=== PATIENT | male | born 1980 | race Caucasian/White ===

== ENCOUNTER 2017-12-24 14:49 | Emergency (ER) | payer OTHER, MEDICAID ==
[~2017-12-24] VITALS: Ht 177.8 cm; Wt 104.3 kg
[~2017-12-24 14:49] MED LIST: AMLODIPINE BESY10 MG; AMOXICILLIN 50500 MG PO; BENTYL20 MG PO; BLOOD PRESSURE MED; CARAFATE1 GM/10 ML; CLEOCIN HCL300 MG PO; CYCLOBENZAPRINE5 MG PO; DARVOCET-N 1001 EACH PO; DOXYCYCLINE 10100 MG PO; FLEXERIL PO; FLONASE 0.05%50 MCG NASAL; HYDROCHLOROTH12.5 M1 PO; HYDROCODON-ACE1 EAC5 PO; IBUPROFEN 800800 MG PO; KLOR-CON 10 ER10 MEQ PO; LASIX 40 MG TAB40 M2 PO; LIPITOR10 MG PO; NEXIUM40 MG PO; NORCO 10-325 T1 EACH; NORCO 10-325 T1 EACH PO; NORCO 5-325 TA1 EACH PO; OMEPRAZOLE 20 M20 M1; OXYIR5 MG PO; PENICILLIN V P500 MG PO; PENICILLIN VK250 MG PO; PERCOCET 5-3251 EACH PO; PHENERGAN 25 MG25 M1 PO; PREDNISONE 20 M20 MG PO; PROTONIX40 M2 PO; VENTOLIN HFA INH8 GM IH
[2017-12-24] MEDS ORDERED: POTASSIUM20 PO (15:10)
[2017-12-24] MEDS ORDERED: ANTACID168 MG PO (15:11)
[2017-12-24 15:39] LABS: ABSOLUTE BASOPHILS 0.1 thou/uL (0.0-0.2); ABSOLUTE EOSINOPHILS 0.4 thou/uL (0.0-0.7); ABSOLUTE LYMPHOCYTES 3.2 thou/uL (0.8-5.3); ABSOLUTE MONOCYTES 0.7 thou/uL (0.0-1.2); BASOPHILS 0.9 %; EOSINOPHILS 3.7 %; HEMATOCRIT 49.3 % (42.0-52.0); HEMOGLOBIN 16.8 gm/dL (14.0-18.0); MCH 30.6 pg (26.0-34.0); MCV 89.8 fL (80.0-100.0); MONOCYTES 6.7 %; MPV 7.6 fl. (7.2-11.1); NUCLEATED RBCS 0 /100WBC; PLATELET COUNT* 243 thou/uL (150-400); POLYS 57.7 %; RBC 5.49 mil/uL (4.50-6.00); RDW-CV 14.1 % (10.5-14.5); WBC 10.4 thou/uL (4.0-11.0)
[2017-12-24 15:46] LABS: ANION GAP 8 mmol/L (7-16); BUN 6 mg/dL (7-18); CHLORIDE 106 mmol/L (98-107); CO2 28 mmol/L (21-32); CREATININE 0.9 mg/dL (0.6-1.3); GLUCOSE 95 mg/dL (70-99); SODIUM 142 mmol/L (136-145)
[2017-12-24 15:58] LABS: ALKALINE PHOSPHATASE 75 U/L (46-116); LIPASE 144 U/L (73-393); SGOT 17 U/L (15-37); SGPT 29 U/L (30-65); TOTAL BILIRUBIN 0.4 mg/dL (<0.1-1.0); TROPONIN-I LEVEL <0.06 ng/mL (<0.06)
[2017-12-24 16:19] LABS: URINE BILIRUBIN NEGATIVE (Negative); URINE BLOOD NEGATIVE (Negative); URINE CLARITY CLEAR; URINE COLOR YELLOW; URINE GLUCOSE-RANDOM NEGATIVE (Negative); URINE KETONES NEGATIVE (Negative); URINE LEUKOCYTES-REFLEX NEGATIVE (Negative); URINE NITRITE-REFLEX NEGATIVE (Negative); URINE PROTEIN NEGATIVE (Negative); URINE UROBILINOGEN 0.2 E.U./dl (0.2-1.0)
[2017-12-24 16:28] VITALS: BP 139/100
[2017-12-24 16:30] LABS: AMP/METHAMP Negative (Negative); BARBITURATES Negative (Negative); BENZODIAZEPINES Negative (Negative); COCAINE Negative (Negative); METHADONE Negative (Negative); OPIATES POSITIVE (Negative); PCP Negative (Negative); THC Negative (Negative)
--- NOTE | 2017-12-26 12:58 | EKG ---
[place] [address] ELECTROCARDIOGRAM REPORT Name: KAROLINA EPPS Room: [facility]#: [id number] Admission: 12/24/17 Attend Phys: Discharge: 12/24/17 Date of : [birth year] Report #: [id number] THIS REPORT FOR: //name// [facility] ED Test Date: 2017-12-24 Test Time: 14:56:58 Pat Name: KAROLINA EPPS Department: Room: Gender: M Jewel Cupping Machine Operator: CATHIE : 1980 Requested By: Fabiana Blunt Order Number: [id number] MD: Eugene De León Measurements Intervals [place] Rate: 90 P: 24 ID: 125 QRS: 13 QRSD: 85 T: 15 QT: 356 QTc: 436 Interpretive Statements Sinus rhythm Borderline T wave abnormalities Compared to ECG 11/21/2016 20:36:32 T-wave abnormality now present Electronically Signed On 12-26-2017 12:58:21 CDT by Eugene De León [email or web address] <ELECTRONICALLY SIGNED> By: Romeo De León MD, [facility] 12/26/17 1258 1456 1456 Romeo De León MD, [facility] /EPI
== END 2017-12-24 16:29 | disposition home or self-care (01) ==
LOC: M.ERS 14:49
PROVIDERS: Physician Assistant
DX: M25.512 Pain in left shoulder (principal); R53.83 Other fatigue; I10 Essential (primary) hypertension; F17.210 Nicotine dependence, cigarettes, uncomplicated

== ENCOUNTER 2018-01-17 20:07 | Emergency (ER) | payer OTHER, MEDICAID ==
[~2018-01-17] VITALS: Ht 180.3 cm; Wt 105.7 kg
[~2018-01-17 20:07] MED LIST changes: +ANTACID168 MG PO; +POTASSIUM20 PO
[2018-01-17 21:12] LABS: URINE BILIRUBIN NEGATIVE (Negative); URINE BLOOD NEGATIVE (Negative); URINE CLARITY CLEAR; URINE COLOR YELLOW; URINE GLUCOSE-RANDOM NEGATIVE (Negative); URINE KETONES NEGATIVE (Negative); URINE LEUKOCYTES-REFLEX NEGATIVE (Negative); URINE NITRITE-REFLEX NEGATIVE (Negative); URINE PROTEIN NEGATIVE (Negative); URINE SPECIFIC GRAVITY <= 1.005 (1.005-1.030); URINE UROBILINOGEN 0.2 E.U./dl (0.2-1.0)
[2018-01-17 21:15] LABS: ABSOLUTE BASOPHILS 0.1 thou/uL (0.0-0.2); ABSOLUTE EOSINOPHILS 0.4 thou/uL (0.0-0.7); ABSOLUTE LYMPHOCYTES 3.5 thou/uL (0.8-5.3); ABSOLUTE MONOCYTES 0.7 thou/uL (0.0-1.2); ABSOLUTE NEUTROPHILS 6.2 thou/uL (1.6-8.1); BASOPHILS 1.2 %; EOSINOPHILS 3.6 %; HEMATOCRIT 49.6 % (42.0-52.0); LYMPHOCYTES 32.4 %; MCHC 34.3 g/dL (28.0-37.0); MCV 90.4 fL (80.0-100.0); MONOCYTES 6.6 %; MPV 7.7 fl. (7.2-11.1); NUCLEATED RBCS 0 /100WBC; PLATELET COUNT* 261 thou/uL (150-400); POLYS 56.2 %; RBC 5.49 mil/uL (4.50-6.00); WBC 10.9 thou/uL (4.0-11.0)
[2018-01-17 21:21] LABS: CALCIUM 8.9 mg/dL (8.5-10.1); POTASSIUM 3.7 mmol/L (3.5-5.1)
[2018-01-17 21:25] LABS: ALBUMIN 4.3 g/dL (3.4-5.0); TOTAL BILIRUBIN 0.3 mg/dL (<0.1-1.0); TOTAL PROTEIN 7.4 g/dL (6.4-8.2)
[2018-01-17] MEDS ORDERED: HYDROCODON-ACE1 EAC7 PO (23:56)
[2018-01-17] MEDS ORDERED: ZOFRAN4 MG PO (23:56)
[2018-01-18 00:02] VITALS: BP 178/112
== END 2018-01-18 00:04 | disposition home or self-care (01) ==
LOC: M.ERS 20:07
PROVIDERS: Emergency Medicine
DX: R10.9 Unspecified abdominal pain (principal); I10 Essential (primary) hypertension; F17.210 Nicotine dependence, cigarettes, uncomplicated

== ENCOUNTER 2018-02-28 12:49 | Emergency (ER) | payer OTHER, MEDICAID ==
[~2018-02-28] VITALS: Ht 177.8 cm; Wt 86.2 kg
[~2018-02-28 12:49] MED LIST changes: +HYDROCODON-ACE1 EAC7 PO; +ZOFRAN4 MG PO
[2018-02-28] MEDS ORDERED: PROTONIX 20 MG20 M1 PO (13:13)
[2018-02-28 13:54] LABS: ABSOLUTE BASOPHILS 0.1 thou/uL (0.0-0.2); ABSOLUTE EOSINOPHILS 0.2 thou/uL (0.0-0.7); ABSOLUTE LYMPHOCYTES 3.7 thou/uL (0.8-5.3); ABSOLUTE MONOCYTES 0.8 thou/uL (0.0-1.2); ABSOLUTE NEUTROPHILS 7.1 thou/uL (1.6-8.1); BASOPHILS 0.9 %; EOSINOPHILS 1.7 %; HEMATOCRIT 48.1 % (42.0-52.0); HEMOGLOBIN 16.2 gm/dL (14.0-18.0); LYMPHOCYTES 30.8 %; MCH 30.9 pg (26.0-34.0); MCHC 33.6 g/dL (28.0-37.0); MCV 91.8 fL (80.0-100.0); MONOCYTES 6.7 %; NUCLEATED RBCS 0 /100WBC; PLATELET COUNT* 247 thou/uL (150-400); POLYS 59.9 %; RBC 5.24 mil/uL (4.50-6.00); RDW-CV 13.3 % (10.5-14.5); WBC 11.9 thou/uL (4.0-11.0)
[2018-02-28 14:02] LABS: CREATININE 0.8 mg/dL (0.6-1.3); POTASSIUM 3.7 mmol/L (3.5-5.1)
[2018-02-28 14:07] LABS: ALBUMIN 4.1 g/dL (3.4-5.0); TOTAL BILIRUBIN 0.3 mg/dL (<0.1-1.0)
[2018-02-28] MEDS ORDERED: ACETAMINOPHEN-1 EAC1 PO (14:14)
[2018-02-28] MEDS ORDERED: CLEOCIN HCL150 MG PO (14:14)
[2018-02-28] MEDS ORDERED: PREDNISONE 20 M20 MG PO (14:16)
[2018-02-28 14:23] VITALS: BP 183/107
== END 2018-02-28 14:23 | disposition home or self-care (01) ==
LOC: M.ERS 12:49
PROVIDERS: Physician Assistant
DX: J02.9 Acute pharyngitis, unspecified (principal); I10 Essential (primary) hypertension; K21.9 Gastro-esophageal reflux disease without esophagitis; F17.210 Nicotine dependence, cigarettes, uncomplicated

== ENCOUNTER 2018-05-31 12:45 | Emergency (ER) | payer OTHER, MEDICAID ==
[~2018-05-31] VITALS: Ht 177.8 cm; Wt 103.0 kg
[~2018-05-31 12:45] MED LIST changes: +ACETAMINOPHEN-1 EAC1 PO; +CLEOCIN HCL150 MG PO; +PROTONIX 20 MG20 M1 PO
[2018-05-31] MEDS ORDERED: CLONIDINE0.1 PO (12:50)
[2018-05-31 13:11] LABS: ABSOLUTE BASOPHILS 0.1 thou/uL (0.0-0.2); ABSOLUTE EOSINOPHILS 0.4 thou/uL (0.0-0.7); ABSOLUTE LYMPHOCYTES 3.1 thou/uL (0.8-5.3); ABSOLUTE MONOCYTES 0.5 thou/uL (0.0-1.2); ABSOLUTE NEUTROPHILS 4.8 thou/uL (1.6-8.1); BASOPHILS 1.3 %; EOSINOPHILS 4.3 %; HEMATOCRIT 46.7 % (42.0-52.0); HEMOGLOBIN 15.7 gm/dL (14.0-18.0); LYMPHOCYTES 34.7 %; MCH 30.4 pg (26.0-34.0); MCHC 33.7 g/dL (28.0-37.0); MCV 90.1 fL (80.0-100.0); MONOCYTES 5.6 %; MPV 7.5 fl. (7.2-11.1); NUCLEATED RBCS 0 /100WBC; PLATELET COUNT* 241 thou/uL (150-400); POLYS 54.1 %; RBC 5.18 mil/uL (4.50-6.00); RDW-CV 13.1 % (10.5-14.5)
[2018-05-31 13:17] LABS: ANION GAP 10 mmol/L (7-16); BUN 4 mg/dL (7-18); CALCIUM 8.4 mg/dL (8.5-10.1); CHLORIDE 104 mmol/L (98-107); CO2 27 mmol/L (21-32); GLUCOSE 117 mg/dL (70-99); POTASSIUM 3.3 mmol/L (3.5-5.1); SODIUM 141 mmol/L (136-145)
[2018-05-31 13:27] LABS: ALBUMIN 3.7 g/dL (3.4-5.0); ALKALINE PHOSPHATASE 68 U/L (46-116); LIPASE 144 U/L (73-393); NT-PRO BRAIN NAT PEPTIDE 31 pg/mL (<300); SGOT 12 U/L (15-37); SGPT 22 U/L (30-65); TOTAL BILIRUBIN 0.5 mg/dL (<0.1-1.0); TOTAL PROTEIN 6.6 g/dL (6.4-8.2); TROPONIN-I LEVEL <0.06 ng/mL (<0.06)
[2018-05-31] MEDS ORDERED: IBU800 MG PO (13:45)
[2018-05-31 13:55] VITALS: BP 163/106
--- NOTE | 2018-05-31 14:41 | EKG ---
[place] [address] ELECTROCARDIOGRAM REPORT Name: KAROLINA EPPS Room: [facility]#: [id number] Admission: 05/31/18 Attend Phys: Discharge: 05/31/18 Date of : [birth year] Report #: [id number] THIS REPORT FOR: //name// [facility] ED Test Date: 2018-05-31 Test Time: 12:50:20 Pat Name: KAROLINA EPPS Department: Room: Gender: M Film Archivist: : 1980 Requested By: Hemal Mcwilliams Order Number: [id number] MD: Booker Schwarz Measurements Intervals [place] Rate: 69 P: 14 CT: 133 QRS: 5 QRSD: 101 T: 10 QT: 408 QTc: 437 Interpretive Statements Sinus rhythm Abnormal R-wave progression, early transition Borderline T abnormalities, inferior leads Compared to ECG 12/24/2017 14:56:58 No significant changes Electronically Signed On 05-31-2018 14:41:03 CDT by Booker Schwarz [email or web address] <ELECTRONICALLY SIGNED> By: Booker Schwarz MD, [facility] 05/31/18 1441 1250 1250 Booker Schwarz MD, [facility] /EPI
== END 2018-05-31 13:56 | disposition home or self-care (01) ==
LOC: M.ERS 12:45
PROVIDERS: Emergency Medicine
DX: R07.89 Other chest pain (principal); K21.9 Gastro-esophageal reflux disease without esophagitis; I10 Essential (primary) hypertension; F17.210 Nicotine dependence, cigarettes, uncomplicated

== ENCOUNTER 2018-06-08 14:45 | Emergency (ER) | payer OTHER, MEDICAID ==
[~2018-06-08] VITALS: Ht 154.9 cm; Wt 105.0 kg
[~2018-06-08 14:45] MED LIST changes: +CLONIDINE0.1 PO; +IBU800 MG PO
[2018-06-08] MEDS ORDERED: PROAIR HFA8.5 GM INH (14:54)
[2018-06-08] MEDS ORDERED: IBUPROFEN 800800 M1 PO (14:54)
[2018-06-08 15:18] LABS: URINE BILIRUBIN NEGATIVE (Negative); URINE BLOOD NEGATIVE (Negative); URINE CLARITY CLEAR; URINE COLOR YELLOW; URINE GLUCOSE-RANDOM NEGATIVE (Negative); URINE KETONES NEGATIVE (Negative); URINE LEUKOCYTES-REFLEX NEGATIVE (Negative); URINE NITRITE-REFLEX NEGATIVE (Negative); URINE PROTEIN NEGATIVE (Negative); URINE SPECIFIC GRAVITY <= 1.005 (1.005-1.030); URINE UROBILINOGEN 0.2 E.U./dl (0.2-1.0)
[2018-06-08 15:20] LABS: ABSOLUTE BASOPHILS 0.1 thou/uL (0.0-0.2); ABSOLUTE EOSINOPHILS 0.4 thou/uL (0.0-0.7); ABSOLUTE MONOCYTES 0.7 thou/uL (0.0-1.2); ABSOLUTE NEUTROPHILS 6.1 thou/uL (1.6-8.1); BASOPHILS 1.3 %; EOSINOPHILS 3.7 %; HEMATOCRIT 48.4 % (42.0-52.0); HEMOGLOBIN 16.2 gm/dL (14.0-18.0); LYMPHOCYTES 35.5 %; MCH 30.5 pg (26.0-34.0); MCHC 33.5 g/dL (28.0-37.0); MCV 91.2 fL (80.0-100.0); MONOCYTES 5.8 %; MPV 7.6 fl. (7.2-11.1); NUCLEATED RBCS 0 /100WBC; PLATELET COUNT* 286 thou/uL (150-400); POLYS 53.7 %; RBC 5.31 mil/uL (4.50-6.00); RDW-CV 13.6 % (10.5-14.5); WBC 11.3 thou/uL (4.0-11.0)
[2018-06-08 15:25] LABS: AMP/METHAMP Negative (Negative); BARBITURATES Negative (Negative); BENZODIAZEPINES Negative (Negative); COCAINE Negative (Negative); METHADONE Negative (Negative); OPIATES Negative (Negative); PCP Negative (Negative); THC Negative (Negative)
[2018-06-08 15:26] LABS: CALCIUM 8.7 mg/dL (8.5-10.1); POTASSIUM 3.3 mmol/L (3.5-5.1)
[2018-06-08 15:30] LABS: TOTAL BILIRUBIN 0.3 mg/dL (<0.1-1.0); TOTAL PROTEIN 7.1 g/dL (6.4-8.2)
[2018-06-08 16:23] VITALS: BP 159/94
== END 2018-06-08 16:25 | disposition home or self-care (01) ==
LOC: M.ERS 14:45
PROVIDERS: Nurse Practitioner Family
DX: R10.11 Right upper quadrant pain (principal); M79.604 Pain in right leg; M79.605 Pain in left leg; I10 Essential (primary) hypertension; K21.9 Gastro-esophageal reflux disease without esophagitis; F17.210 Nicotine dependence, cigarettes, uncomplicated

== ENCOUNTER 2018-09-14 21:54 | Emergency (ER) | payer OTHER, MEDICAID ==
[~2018-09-14] VITALS: Ht 175.3 cm; Wt 93.0 kg
[~2018-09-14 21:54] MED LIST changes: +IBUPROFEN 800800 M1 PO; +PROAIR HFA8.5 GM INH
[2018-09-14] MEDS ORDERED: ASPIR-TRIN325 MG PO (22:14)
[2018-09-14 22:32] LABS: ABSOLUTE BASOPHILS 0.2 thou/uL (0.0-0.2); ABSOLUTE EOSINOPHILS 0.3 thou/uL (0.0-0.7); ABSOLUTE LYMPHOCYTES 3.3 thou/uL (0.8-5.3); ABSOLUTE MONOCYTES 0.6 thou/uL (0.0-1.2); ABSOLUTE NEUTROPHILS 6.2 thou/uL (1.6-8.1); BASOPHILS 1.4 %; HEMATOCRIT 50.4 % (42.0-52.0); HEMOGLOBIN 17.1 gm/dL (14.0-18.0); LYMPHOCYTES 31.5 %; MCH 30.8 pg (26.0-34.0); MCV 90.7 fL (80.0-100.0); MONOCYTES 5.7 %; MPV 7.6 fl. (7.2-11.1); NUCLEATED RBCS 0 /100WBC; PLATELET COUNT* 241 thou/uL (150-400); POLYS 58.4 %; RBC 5.55 mil/uL (4.50-6.00); RDW-CV 13.2 % (10.5-14.5); WBC 10.6 thou/uL (4.0-11.0)
[2018-09-14 22:41] LABS: ANION GAP 8 mmol/L (7-16); BUN 7 mg/dL (7-18); CHLORIDE 106 mmol/L (98-107); CO2 28 mmol/L (21-32); GLUCOSE 86 mg/dL (70-99); POTASSIUM 3.6 mmol/L (3.5-5.1); SODIUM 142 mmol/L (136-145)
[2018-09-14 22:51] LABS: ALKALINE PHOSPHATASE 78 U/L (46-116); LIPASE 134 U/L (73-393); NT-PRO BRAIN NAT PEPTIDE 25 pg/mL (<300); SGOT 11 U/L (15-37); SGPT 30 U/L (30-65); TOTAL BILIRUBIN 0.4 mg/dL (<0.1-1.0); TOTAL PROTEIN 7.1 g/dL (6.4-8.2); TROPONIN-I LEVEL <0.06 ng/mL (<0.06)
[2018-09-14 23:14] LABS: URINE BILIRUBIN NEGATIVE (Negative); URINE BLOOD NEGATIVE (Negative); URINE CLARITY CLEAR; URINE COLOR YELLOW; URINE GLUCOSE-RANDOM NEGATIVE (Negative); URINE KETONES NEGATIVE (Negative); URINE LEUKOCYTES-REFLEX NEGATIVE (Negative); URINE NITRITE-REFLEX NEGATIVE (Negative); URINE PROTEIN NEGATIVE (Negative); URINE SPECIFIC GRAVITY <= 1.005 (1.005-1.030); URINE UROBILINOGEN 0.2 E.U./dl (0.2-1.0)
[2018-09-14 23:21] LABS: AMP/METHAMP Negative (Negative); BARBITURATES Negative (Negative); BENZODIAZEPINES Negative (Negative); COCAINE Negative (Negative); METHADONE Negative (Negative); OPIATES Negative (Negative); PCP Negative (Negative); THC Negative (Negative)
[2018-09-14] MEDS ORDERED: NORVASC5 MG PO (23:28)
[2018-09-14 23:37] VITALS: BP 143/92
--- NOTE | 2018-09-15 10:59 | EKG ---
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
== END 2018-09-14 23:37 | disposition home or self-care (01) ==
LOC: M.ERS 21:54
PROVIDERS: Emergency Medicine
DX: I10 Essential (primary) hypertension (principal); K21.9 Gastro-esophageal reflux disease without esophagitis; R06.02 Shortness of breath; R42 Dizziness and giddiness

== ENCOUNTER 2018-10-26 09:14 | Emergency (ER) | payer OTHER, MEDICAID ==
[~2018-10-26] VITALS: Ht 175.3 cm; Wt 96.6 kg
[~2018-10-26 09:14] MED LIST changes: +ASPIR-TRIN325 MG PO; +NORVASC5 MG PO
[2018-10-26 09:59] LABS: URINE BILIRUBIN NEGATIVE (Negative); URINE BLOOD NEGATIVE (Negative); URINE CLARITY CLEAR; URINE COLOR YELLOW; URINE GLUCOSE-RANDOM NEGATIVE (Negative); URINE KETONES NEGATIVE (Negative); URINE LEUKOCYTES-REFLEX NEGATIVE (Negative); URINE NITRITE-REFLEX NEGATIVE (Negative); URINE PROTEIN NEGATIVE (Negative); URINE SPECIFIC GRAVITY 1.025 (1.005-1.030); URINE UROBILINOGEN 0.2 E.U./dl (0.2-1.0)
[2018-10-26 10:26] LABS: ABSOLUTE BASOPHILS 0.1 thou/uL (0.0-0.2); ABSOLUTE EOSINOPHILS 0.4 thou/uL (0.0-0.7); ABSOLUTE LYMPHOCYTES 3.2 thou/uL (0.8-5.3); ABSOLUTE MONOCYTES 0.7 thou/uL (0.0-1.2); ABSOLUTE NEUTROPHILS 4.7 thou/uL (1.6-8.1); BASOPHILS 1.3 %; HEMATOCRIT 50.5 % (42.0-52.0); HEMOGLOBIN 17.3 gm/dL (14.0-18.0); LYMPHOCYTES 35.6 %; MCH 31.3 pg (26.0-34.0); MCHC 34.2 g/dL (28.0-37.0); MCV 91.6 fL (80.0-100.0); MONOCYTES 7.4 %; MPV 7.6 fl. (7.2-11.1); NUCLEATED RBCS 0 /100WBC; PLATELET COUNT* 237 thou/uL (150-400); POLYS 51.7 %; RBC 5.51 mil/uL (4.50-6.00); RDW-CV 13.4 % (10.5-14.5)
[2018-10-26 10:37] LABS: ALBUMIN 3.9 g/dL (3.4-5.0); POTASSIUM 3.3 mmol/L (3.5-5.1); TOTAL BILIRUBIN 0.4 mg/dL (<0.1-1.0); TOTAL PROTEIN 6.9 g/dL (6.4-8.2)
[2018-10-26 10:47] VITALS: BP 147/99
== END 2018-10-26 10:48 | disposition home or self-care (01) ==
LOC: M.ERS 09:14
PROVIDERS: Family Medicine
DX: M54.5 Low back pain (principal); I10 Essential (primary) hypertension; K21.9 Gastro-esophageal reflux disease without esophagitis; F17.210 Nicotine dependence, cigarettes, uncomplicated

== ENCOUNTER 2019-01-07 16:48 | Emergency (ER) | payer OTHER ==
[~2019-01-07] VITALS: Ht 175.3 cm; Wt 88.5 kg
[2019-01-07 17:49] LABS: ABSOLUTE BASOPHILS 0.1 thou/uL (0.0-0.2); ABSOLUTE EOSINOPHILS 0.4 thou/uL (0.0-0.7); ABSOLUTE MONOCYTES 0.4 thou/uL (0.0-1.2); ABSOLUTE NEUTROPHILS 4.1 thou/uL (1.6-8.1); BASOPHILS 1.1 %; HEMATOCRIT 51.8 % (42.0-52.0); HEMOGLOBIN 17.7 gm/dL (14.0-18.0); LYMPHOCYTES 37.3 %; MCHC 34.2 g/dL (28.0-37.0); MCV 90.8 fL (80.0-100.0); MONOCYTES 5.5 %; MPV 8.1 fl. (7.2-11.1); NUCLEATED RBCS 0 /100WBC; PLATELET COUNT* 235 thou/uL (150-400); POLYS 51.1 %; RBC 5.71 mil/uL (4.50-6.00); RDW-CV 13.1 % (10.5-14.5); WBC 8.1 thou/uL (4.0-11.0)
[2019-01-07 18:00] LABS: APTT 32.8 Seconds (25.0-31.3); PROTIME 10.5 Seconds (9.20-11.50)
[2019-01-07 18:12] LABS: ANION GAP 8 mmol/L (7-16); BUN 8 mg/dL (7-18); CALCIUM 9.1 mg/dL (8.5-10.1); CHLORIDE 107 mmol/L (98-107); CO2 28 mmol/L (21-32); GLUCOSE 89 mg/dL (70-99); POTASSIUM 3.9 mmol/L (3.5-5.1); SODIUM 143 mmol/L (136-145); TROPONIN-I LEVEL <0.06 ng/mL (<0.06)
[2019-01-07 18:16] LABS: ALKALINE PHOSPHATASE 80 U/L (46-116); CK-MB MASS < 0.5 ng/mL (<0.5-3.6); LIPASE 110 U/L (73-393); MAGNESIUM 1.9 mg/dL (1.8-2.4); NT-PRO BRAIN NAT PEPTIDE 17 pg/mL (<300); SGOT 16 U/L (15-37); SGPT 22 U/L (30-65); TOTAL BILIRUBIN 0.4 mg/dL (<0.1-1.0); TOTAL PROTEIN 7.1 g/dL (6.4-8.2)
[2019-01-07 18:30] VITALS: BP 163/103
--- NOTE | 2019-01-08 15:12 | EKG ---
[place] [address] ELECTROCARDIOGRAM REPORT Name: KAROLINA EPPS [id number] Admission: 01/07/19 Attend Phys: Discharge: 01/07/19 Date of : [birth year] Report #: [id number] THIS REPORT FOR: //name// [facility] ED Test Date: 2019-01-07 Test Time: 16:55:20 Pat Name: KAROLINA EPPS Department: Room: Gender: M Fur Liner: : 1980 Requested By: Cooper Johnston Order Number: [id number] MD: Moncho Mcdaniels Measurements Intervals [place] Rate: 82 P: 29 CT: 127 QRS: 18 QRSD: 101 T: 30 QT: 353 QTc: 413 Interpretive Statements Sinus rhythm Baseline wander in lead(s) V2 Compared to ECG 09/14/2018 22:18:56 No significant changes Electronically Signed On 01-08-2019 15:12:17 CDT by Moncho Mcdaniels [email or web address] <ELECTRONICALLY SIGNED> By: Moncho Mcdaniels MD, [facility] 01/08/19 1512 D: [id number] Moncho Mcdaniels MD, [facility] /EPI
== END 2019-01-07 18:31 | disposition home or self-care (01) ==
LOC: M.ERS 16:48
PROVIDERS: Family Medicine
DX: R07.89 Other chest pain (principal); I10 Essential (primary) hypertension; K21.9 Gastro-esophageal reflux disease without esophagitis; F17.210 Nicotine dependence, cigarettes, uncomplicated

== ENCOUNTER 2019-02-17 13:26 | Emergency (ER) | payer OTHER ==
[~2019-02-17] VITALS: Ht 182.9 cm; Wt 81.7 kg
[2019-02-17] MEDS ORDERED: NEXIUM40 MG PO (14:20)
[2019-02-17 14:59] LABS: URINE BILIRUBIN NEGATIVE (Negative); URINE BLOOD NEGATIVE (Negative); URINE CLARITY CLEAR; URINE COLOR YELLOW; URINE GLUCOSE-RANDOM NEGATIVE (Negative); URINE KETONES NEGATIVE (Negative); URINE LEUKOCYTES-REFLEX NEGATIVE (Negative); URINE NITRITE-REFLEX NEGATIVE (Negative); URINE PROTEIN NEGATIVE (Negative); URINE SPECIFIC GRAVITY <= 1.005 (1.005-1.030); URINE UROBILINOGEN 0.2 E.U./dl (0.2-1.0)
[2019-02-17 15:06] LABS: ABSOLUTE EOSINOPHILS 0.3 thou/uL (0.0-0.7); ABSOLUTE LYMPHOCYTES 2.5 thou/uL (0.8-5.3); ABSOLUTE MONOCYTES 0.4 thou/uL (0.0-1.2); ABSOLUTE NEUTROPHILS 5.9 thou/uL (1.6-8.1); BASOPHILS 0.3 %; EOSINOPHILS 3.3 %; HEMATOCRIT 50.2 % (42.0-52.0); HEMOGLOBIN 17.2 gm/dL (14.0-18.0); LYMPHOCYTES 27.2 %; MCH 31.1 pg (26.0-34.0); MCHC 34.2 g/dL (28.0-37.0); MCV 90.9 fL (80.0-100.0); MONOCYTES 4.8 %; MPV 8.1 fl. (7.2-11.1); NUCLEATED RBCS 0 /100WBC; PLATELET COUNT* 222 thou/uL (150-400); POLYS 64.4 %; RBC 5.52 mil/uL (4.50-6.00); RDW-CV 13.4 % (10.5-14.5); WBC 9.2 thou/uL (4.0-11.0)
[2019-02-17 15:28] LABS: ALBUMIN 4.1 g/dL (3.4-5.0); ALKALINE PHOSPHATASE 69 U/L (46-116); ANION GAP 8 mmol/L (7-16); BUN 7 mg/dL (7-18); CALCIUM 9.3 mg/dL (8.5-10.1); CHLORIDE 106 mmol/L (98-107); CO2 28 mmol/L (21-32); CREATININE 0.9 mg/dL (0.6-1.3); GLUCOSE 92 mg/dL (70-99); POTASSIUM 4.1 mmol/L (3.5-5.1); SGOT 16 U/L (15-37); SGPT 26 U/L (30-65); SODIUM 142 mmol/L (136-145); TOTAL BILIRUBIN 0.6 mg/dL (<0.1-1.0); TOTAL PROTEIN 7.2 g/dL (6.4-8.2); TROPONIN-I LEVEL <0.06 ng/mL (<0.06)
--- NOTE | 2019-02-17 16:37 | EKG ---
[place] [address] ELECTROCARDIOGRAM REPORT Name: KAROLINA EPPS Room: [facility]#: [id number] Admission: 02/17/19 Attend Phys: Discharge: Date of : [birth year] Report #: [id number] THIS REPORT FOR: //name// [place] ED Test Date: 2019-02-17 Test Time: 14:37:11 Pat Name: KAROLINA MICH Department: Room: Gender: Practice Assistant: Gretchen TOUSSAINT : 1980 Requested By: Yanique Salinas Order Number: [id number] MD: Booker Schwarz Measurements Intervals [place] Rate: 72 P: 34 OR: 124 QRS: 27 QRSD: 98 T: 40 QT: 390 QTc: 427 Interpretive Statements Sinus rhythm Compared to ECG 01/07/2019 16:55:20 No significant changes Electronically Signed On 02-17-2019 16:37:49 CDT by Booker Schwarz [email or web address] <ELECTRONICALLY SIGNED> By: Booker Schwarz MD, [facility] 02/17/19 1637 1437 1437 Booker Schwarz MD, [facility] /EPI
[2019-02-17] MEDS ORDERED: MEDROLDOSEPACK PO (16:39)
[2019-02-17] MEDS ORDERED: NORCO 5-325 TA1 EACH PO (16:39)
[2019-02-17] MEDS ORDERED: FLEXERIL PO (16:39)
[2019-02-17 16:59] VITALS: BP 157/107
== END 2019-02-17 17:01 | disposition home or self-care (01) ==
LOC: M.ERS 13:26
PROVIDERS: Nurse Practitioner Family
DX: M46.1 Sacroiliitis, not elsewhere classified (principal); R10.32 Left lower quadrant pain; N50.812 Left testicular pain; F17.210 Nicotine dependence, cigarettes, uncomplicated; K21.9 Gastro-esophageal reflux disease without esophagitis; I10 Essential (primary) hypertension

== ENCOUNTER 2019-03-16 17:22 | Emergency (ER) | payer OTHER, MEDICAID ==
[~2019-03-16] VITALS: Ht 175.3 cm; Wt 83.0 kg
[~2019-03-16 17:22] MED LIST changes: +MEDROLDOSEPACK PO
[2019-03-16] MEDS ORDERED: PROTONIX40 M1 PO (17:37)
[2019-03-16] MEDS ORDERED: AMOXICILLIN 50500 MG PO (17:58)
[2019-03-16] MEDS ORDERED: NAPROSYN500 MG PO (17:58)
[2019-03-16 18:07] VITALS: BP 173/103
== END 2019-03-16 18:08 | disposition home or self-care (01) ==
LOC: M.ERS 17:22
DX: H66.91 Otitis media, unspecified, right ear (principal); J06.9 Acute upper respiratory infection, unspecified; K21.9 Gastro-esophageal reflux disease without esophagitis; I10 Essential (primary) hypertension; F17.210 Nicotine dependence, cigarettes, uncomplicated

== ENCOUNTER 2019-04-15 17:32 | Emergency (ER) | payer OTHER, MEDICAID ==
[~2019-04-15] VITALS: Ht 177.8 cm; Wt 83.5 kg
[~2019-04-15 17:32] MED LIST changes: +NAPROSYN500 MG PO; +PREDNISONE 20 M20 M1 PO; +PROTONIX40 M1 PO; +ZPAK PO
[2019-04-15 18:14] LABS: ABSOLUTE BASOPHILS 0.1 thou/uL (0.0-0.2); ABSOLUTE EOSINOPHILS 0.1 thou/uL (0.0-0.7); ABSOLUTE LYMPHOCYTES 3.5 thou/uL (0.8-5.3); ABSOLUTE MONOCYTES 0.3 thou/uL (0.0-1.2); ABSOLUTE NEUTROPHILS 7.2 thou/uL (1.6-8.1); BASOPHILS 0.6 %; EOSINOPHILS 0.5 %; HEMATOCRIT 45.3 % (42.0-52.0); HEMOGLOBIN 15.3 gm/dL (14.0-18.0); LYMPHOCYTES 31.6 %; MCH 30.6 pg (26.0-34.0); MCHC 33.7 g/dL (28.0-37.0); MCV 90.8 fL (80.0-100.0); MONOCYTES 3.1 %; MPV 7.9 fl. (7.2-11.1); NUCLEATED RBCS 0 /100WBC; PLATELET COUNT* 236 thou/uL (150-400); POLYS 64.2 %; RBC 4.99 mil/uL (4.50-6.00); RDW-CV 13.8 % (10.5-14.5); WBC 11.2 thou/uL (4.0-11.0)
[2019-04-15 18:17] LABS: URINE BILIRUBIN NEGATIVE (Negative); URINE BLOOD NEGATIVE (Negative); URINE CLARITY CLEAR; URINE COLOR STRAW; URINE GLUCOSE-RANDOM NEGATIVE (Negative); URINE KETONES NEGATIVE (Negative); URINE LEUKOCYTES NEGATIVE (Negative); URINE NITRITE NEGATIVE (Negative); URINE PROTEIN NEGATIVE (Negative); URINE SPECIFIC GRAVITY <= 1.005 (1.005-1.030); URINE UROBILINOGEN 0.2 E.U./dl (0.2-1.0)
[2019-04-15 18:21] LABS: CALCIUM 9.3 mg/dL (8.5-10.1); CREATININE 1.1 mg/dL (0.6-1.3); POTASSIUM 3.2 mmol/L (3.5-5.1)
[2019-04-15 18:25] LABS: TOTAL BILIRUBIN 0.6 mg/dL (<0.1-1.0); TOTAL PROTEIN 6.5 g/dL (6.4-8.2)
[2019-04-15] MEDS ORDERED: PHENERGAN 25 MG25 M1 PO (20:05)
[2019-04-15] MEDS ORDERED: BENTYL 20 MG TA20 M1 PO (20:05)
[2019-04-15 20:21] VITALS: BP 146/87
== END 2019-04-15 20:22 | disposition home or self-care (01) ==
LOC: M.ERS 17:32
PROVIDERS: Physician Assistant
DX: R10.84 Generalized abdominal pain (principal); R42 Dizziness and giddiness; I10 Essential (primary) hypertension; K21.9 Gastro-esophageal reflux disease without esophagitis; K76.0 Fatty (change of) liver, not elsewhere classified; F17.210 Nicotine dependence, cigarettes, uncomplicated

== ENCOUNTER 2019-05-15 14:48 | Emergency (ER) | payer OTHER, MEDICAID ==
[~2019-05-15] VITALS: Ht 167.6 cm; Wt 81.7 kg
[~2019-05-15 14:48] MED LIST changes: +BENTYL 20 MG TA20 M1 PO
[2019-05-15] MEDS ORDERED: LISINOPRIL10 MG PO (14:57)
[2019-05-15 15:24] LABS: ABSOLUTE EOSINOPHILS 0.3 thou/uL (0.0-0.7); ABSOLUTE LYMPHOCYTES 4.1 thou/uL (0.8-5.3); ABSOLUTE MONOCYTES 0.5 thou/uL (0.0-1.2); ABSOLUTE NEUTROPHILS 5.6 thou/uL (1.6-8.1); BASOPHILS 0.1 %; EOSINOPHILS 3.1 %; HEMOGLOBIN 16.6 gm/dL (14.0-18.0); LYMPHOCYTES 38.9 %; MCH 31.3 pg (26.0-34.0); MCHC 34.6 g/dL (28.0-37.0); MCV 90.5 fL (80.0-100.0); MONOCYTES 4.6 %; MPV 7.8 fl. (7.2-11.1); NUCLEATED RBCS 0 /100WBC; PLATELET COUNT* 234 thou/uL (150-400); POLYS 53.3 %; RBC 5.31 mil/uL (4.50-6.00); RDW-CV 14.1 % (10.5-14.5); WBC 10.5 thou/uL (4.0-11.0)
[2019-05-15 15:30] LABS: ANION GAP 10 mmol/L (7-16); BUN 7 mg/dL (7-18); CALCIUM 9.3 mg/dL (8.5-10.1); CHLORIDE 103 mmol/L (98-107); CO2 26 mmol/L (21-32); GLUCOSE 95 mg/dL (70-99); POTASSIUM 3.8 mmol/L (3.5-5.1); SODIUM 139 mmol/L (136-145)
[2019-05-15 15:40] LABS: ALBUMIN 4.3 g/dL (3.4-5.0); ALKALINE PHOSPHATASE 81 U/L (46-116); LIPASE 142 U/L (73-393); MAGNESIUM 1.7 mg/dL (1.8-2.4); NT-PRO BRAIN NAT PEPTIDE 34 pg/mL (<300); SGOT 14 U/L (15-37); SGPT 28 U/L (30-65); TOTAL BILIRUBIN 0.4 mg/dL (<0.1-1.0); TOTAL PROTEIN 7.3 g/dL (6.4-8.2); TROPONIN-I LEVEL <0.06 ng/mL (<0.06)
[2019-05-15] MEDS ORDERED: ZOFRAN ODT4 MG DISSOLVE (17:45)
[2019-05-15] MEDS ORDERED: NORCO 5-325 TA1 EAC1 PO (17:45)
[2019-05-15] MEDS ORDERED: FLEXERIL PO (17:45)
[2019-05-15 18:10] VITALS: BP 124/83
--- NOTE | 2019-05-16 10:37 | EKG ---
[place] [address] ELECTROCARDIOGRAM REPORT Name: KAROLINA EPPS Room: [facility]#: [id number] Admission: 05/15/19 Attend Phys: Discharge: 05/15/19 Date of : [birth year] Report #: [id number] THIS REPORT FOR: //name// [facility] ED Test Date: 2019-05-15 Test Time: 14:56:06 Pat Name: KAROLINA EPPS Department: Room: Gender: M Air Hole Driller: OLYA : 1980 Requested By: Luis Dawson Order Number: [id number] MD: Dandy Wise Measurements Intervals [place] Rate: 100 P: 67 SC: 118 QRS: 45 QRSD: 89 T: 38 QT: 357 QTc: 461 Interpretive Statements Sinus tachycardia Compared to ECG 02/17/2019 14:37:11 Sinus rhythm no longer present Electronically Signed On 05-16-2019 10:37:26 CDT by Dandy Wise [email or web address] <ELECTRONICALLY SIGNED> By: Dandy Wise MD, [facility] 05/16/19 1037 1456 1456 Dandy Wise MD, [facility] /EPI
== END 2019-05-15 18:10 | disposition home or self-care (01) ==
LOC: M.ERS 14:48
PROVIDERS: Emergency Medicine Emergency Medical Services
DX: R07.89 Other chest pain (principal); R42 Dizziness and giddiness; R10.11 Right upper quadrant pain; R25.2 Cramp and spasm; R06.02 Shortness of breath; K59.00 Constipation, unspecified; R53.1 Weakness; F17.210 Nicotine dependence, cigarettes, uncomplicated; I10 Essential (primary) hypertension; K21.9 Gastro-esophageal reflux disease without esophagitis

== ENCOUNTER 2019-06-12 12:19 | Emergency (ER) | payer OTHER, MEDICAID ==
[~2019-06-12] VITALS: Ht 175.3 cm; Wt 83.0 kg
[~2019-06-12 12:19] MED LIST changes: +LISINOPRIL10 MG PO; +NORCO 5-325 TA1 EAC1 PO; +ZOFRAN ODT4 MG DISSOLVE
[2019-06-12] MEDS ORDERED: CARVEDILOL6.25 M1 PO (12:27)
[2019-06-12 13:14] LABS: ABSOLUTE EOSINOPHILS 0.4 thou/uL (0.0-0.7); ABSOLUTE LYMPHOCYTES 2.8 thou/uL (0.8-5.3)
[2019-06-12 13:17] LABS: ABSOLUTE BASOPHILS 0.1 thou/uL (0.0-0.2); ABSOLUTE MONOCYTES 0.5 thou/uL (0.0-1.2); HEMATOCRIT 46.2 % (42.0-52.0); HEMOGLOBIN 15.8 gm/dL (14.0-18.0); LYMPHOCYTES 32.2 %; MCH 31.6 pg (26.0-34.0); MCHC 34.1 g/dL (28.0-37.0); MCV 92.5 fL (80.0-100.0); MONOCYTES 5.6 %; MPV 7.9 fl. (7.2-11.1); NUCLEATED RBCS 0 /100WBC; PLATELET COUNT* 223 thou/uL (150-400); POLYS 57.2 %; RDW-CV 14.1 % (10.5-14.5); WBC 8.8 thou/uL (4.0-11.0)
[2019-06-12 13:24] LABS: INR 1.1
[2019-06-12 13:28] LABS: CALCIUM 8.8 mg/dL (8.5-10.1)
[2019-06-12 13:33] LABS: ALBUMIN 3.8 g/dL (3.4-5.0); TOTAL BILIRUBIN 0.6 mg/dL (<0.1-1.0); TOTAL PROTEIN 6.5 g/dL (6.4-8.2)
[2019-06-12 13:45] VITALS: BP 158/97
--- NOTE | 2019-06-13 16:15 | EKG ---
[place] [address] ELECTROCARDIOGRAM REPORT Name: KAROLINA EPPS Room: [facility]#: [id number] Admission: 06/12/19 Attend Phys: Discharge: 06/12/19 Date of : [birth year] Report #: [id number] THIS REPORT FOR: //name// [facility] ED Test Date: 2019-06-12 Test Time: 13:26:33 Pat Name: KAROLINA EPPS Department: Room: Gender: M Internet Sourcer: : 1980 Requested By: Cooper Johnston Order Number: [id number] MD: Damien Napoles Measurements Intervals [place] Rate: 67 P: 27 [place]: 123 QRS: 22 QRSD: 94 T: -14 QT: 390 QTc: 412 Interpretive Statements Sinus rhythm Borderline repolarization abnormality Baseline wander in lead(s) I,II,III,aVR,aVL,aVF,V1,V2,V3,V4,V5,V6 Compared to ECG 05/15/2019 14:56:06 Sinus tachycardia no longer present Electronically Signed On 06-13-2019 16:15:23 CDT by Damien Napoles [email or web address] <ELECTRONICALLY SIGNED> By: Damien Napoles MD, [facility] 06/13/19 1615 1326 1326 Damien Napoles MD, [facility] /EPI
== END 2019-06-12 13:45 | disposition home or self-care (01) ==
LOC: M.ERS 12:19
PROVIDERS: Family Medicine
DX: R53.1 Weakness (principal); R42 Dizziness and giddiness; K21.9 Gastro-esophageal reflux disease without esophagitis; I10 Essential (primary) hypertension; F17.210 Nicotine dependence, cigarettes, uncomplicated

== ENCOUNTER 2019-06-16 18:09 | Emergency (ER) | payer OTHER, MEDICAID ==
[~2019-06-16] VITALS: Ht 172.7 cm; Wt 74.8 kg
[~2019-06-16 18:09] MED LIST changes: +CARVEDILOL6.25 M1 PO
[2019-06-16 18:43] LABS: ABSOLUTE BASOPHILS 0.1 thou/uL (0.0-0.2); ABSOLUTE EOSINOPHILS 0.1 thou/uL (0.0-0.7); ABSOLUTE LYMPHOCYTES 1.3 thou/uL (0.8-5.3); ABSOLUTE MONOCYTES 0.9 thou/uL (0.0-1.2); ABSOLUTE NEUTROPHILS 7.3 thou/uL (1.6-8.1); BASOPHILS 0.7 %; EOSINOPHILS 0.9 %; HEMATOCRIT 47.7 % (42.0-52.0); HEMOGLOBIN 16.3 gm/dL (14.0-18.0); LYMPHOCYTES 13.8 %; MCH 31.4 pg (26.0-34.0); MCHC 34.2 g/dL (28.0-37.0); MCV 91.9 fL (80.0-100.0); MONOCYTES 9.7 %; NUCLEATED RBCS 0 /100WBC; PLATELET COUNT* 161 thou/uL (150-400); POLYS 74.9 %; RBC 5.19 mil/uL (4.50-6.00); RDW-CV 13.9 % (10.5-14.5); WBC 9.7 thou/uL (4.0-11.0)
[2019-06-16 18:49] LABS: CALCIUM 8.4 mg/dL (8.5-10.1); CREATININE 1.1 mg/dL (0.6-1.3); POTASSIUM 3.4 mmol/L (3.5-5.1)
[2019-06-16] MEDS ORDERED: ZOFRAN ODT4 MG SUBLING (18:51)
[2019-06-16] MEDS ORDERED: NAPROSYN500 MG PO (18:51)
[2019-06-16 19:02] VITALS: BP 140/80
[2019-06-16 19:02] LABS: ALBUMIN 3.6 g/dL (3.4-5.0); TOTAL BILIRUBIN 0.5 mg/dL (<0.1-1.0); TOTAL PROTEIN 6.4 g/dL (6.4-8.2)
== END 2019-06-16 19:03 | disposition home or self-care (01) ==
LOC: M.ERS 18:09
PROVIDERS: Family Medicine
DX: B34.9 Viral infection, unspecified (principal); R42 Dizziness and giddiness; F17.210 Nicotine dependence, cigarettes, uncomplicated; I10 Essential (primary) hypertension; K21.9 Gastro-esophageal reflux disease without esophagitis

== ENCOUNTER 2019-07-13 11:42 | Emergency (ER) | payer OTHER, MEDICAID ==
[~2019-07-13] VITALS: Ht 175.3 cm; Wt 81.7 kg
[~2019-07-13 11:42] MED LIST changes: +ZOFRAN ODT4 MG SUBLING
[2019-07-13] MEDS ORDERED: FLEXERIL PO (13:11)
[2019-07-13 13:34] VITALS: BP 145/92
== END 2019-07-13 13:36 | disposition home or self-care (01) ==
LOC: M.ERS 11:42
DX: S16.1XXA Strain of muscle, fascia and tendon at neck level, initial encounter (principal); F17.210 Nicotine dependence, cigarettes, uncomplicated; I10 Essential (primary) hypertension; K21.9 Gastro-esophageal reflux disease without esophagitis; X50.0XXA Overexertion from strenuous movement or load, initial encounter; Y92.89 Other specified places as the place of occurrence of the external cause; Y93.89 Activity, other specified; Y99.8 Other external cause status

== ENCOUNTER 2019-08-04 10:37 | Emergency (ER) | payer OTHER, MEDICAID ==
[~2019-08-04] VITALS: Ht 177.8 cm; Wt 81.7 kg
[2019-08-04 10:46] VITALS: BP 141/79
[2019-08-04] MEDS ORDERED: TYLENOL WITH CO1 TA1 PO (11:04)
[2019-08-04] MEDS ORDERED: AMOXICILLIN 50500 MG PO (11:04)
== END 2019-08-04 11:16 | disposition home or self-care (01) ==
LOC: M.ERS 10:37
DX: K02.9 Dental caries, unspecified (principal); I10 Essential (primary) hypertension; K21.9 Gastro-esophageal reflux disease without esophagitis; F17.210 Nicotine dependence, cigarettes, uncomplicated

== ENCOUNTER 2019-08-13 15:33 | Emergency (ER) | payer OTHER, MEDICAID ==
[~2019-08-13] VITALS: Ht 177.8 cm; Wt 81.7 kg
[~2019-08-13 15:33] MED LIST changes: +TYLENOL WITH CO1 TA1 PO
[2019-08-13 16:05] LABS: URINE BILIRUBIN NEGATIVE (Negative); URINE BLOOD NEGATIVE (Negative); URINE CLARITY CLEAR; URINE COLOR YELLOW; URINE GLUCOSE-RANDOM NEGATIVE (Negative); URINE KETONES NEGATIVE (Negative); URINE LEUKOCYTES-REFLEX NEGATIVE (Negative); URINE NITRITE-REFLEX NEGATIVE (Negative); URINE PROTEIN NEGATIVE (Negative); URINE UROBILINOGEN 0.2 E.U./dl (0.2-1.0)
[2019-08-13 16:14] LABS: INFLUENZA A ANTIGEN Negative (Negative); INFLUENZA B ANTIGEN Negative (Negative)
[2019-08-13 16:21] LABS: AMP/METHAMP Negative (Negative); BARBITURATES Negative (Negative); BENZODIAZEPINES Negative (Negative); COCAINE Negative (Negative); METHADONE Negative (Negative); OPIATES Negative (Negative); PCP Negative (Negative); THC Negative (Negative)
[2019-08-13 16:26] LABS: ABSOLUTE BASOPHILS 0.1 thou/uL (0.0-0.2); ABSOLUTE EOSINOPHILS 0.3 thou/uL (0.0-0.7); ABSOLUTE LYMPHOCYTES 2.2 thou/uL (0.8-5.3); ABSOLUTE MONOCYTES 0.4 thou/uL (0.0-1.2); EOSINOPHILS 3.8 %; HEMATOCRIT 45.9 % (42.0-52.0); HEMOGLOBIN 15.9 gm/dL (14.0-18.0); LYMPHOCYTES 32.1 %; MCH 31.3 pg (26.0-34.0); MCHC 34.6 g/dL (28.0-37.0); MCV 90.4 fL (80.0-100.0); MONOCYTES 5.2 %; MPV 7.5 fl. (7.2-11.1); NUCLEATED RBCS 0 /100WBC; PLATELET COUNT* 209 thou/uL (150-400); POLYS 57.9 %; RBC 5.08 mil/uL (4.50-6.00); RDW-CV 14.2 % (10.5-14.5); WBC 6.9 thou/uL (4.0-11.0)
[2019-08-13 16:39] LABS: CALCIUM 8.8 mg/dL (8.5-10.1); CREATININE 0.9 mg/dL (0.6-1.3)
[2019-08-13 16:43] LABS: ALBUMIN 3.8 g/dL (3.4-5.0); TOTAL BILIRUBIN 0.4 mg/dL (<0.1-1.0); TOTAL PROTEIN 6.4 g/dL (6.4-8.2)
[2019-08-13] MEDS ORDERED: MEDROLDOSEPACK PO (17:13)
[2019-08-13 17:19] VITALS: BP 178/84
== END 2019-08-13 17:20 | disposition home or self-care (01) ==
LOC: M.ERS 15:33
PROVIDERS: Personal Emergency Response Attendant
DX: G89.29 Other chronic pain (principal); M54.2 Cervicalgia; M79.18 Myalgia, other site; I10 Essential (primary) hypertension; K21.9 Gastro-esophageal reflux disease without esophagitis; F17.210 Nicotine dependence, cigarettes, uncomplicated; Z79.899 Other long term (current) drug therapy

== ENCOUNTER 2019-09-15 16:07 | Emergency (ER) | payer OTHER, MEDICAID ==
[~2019-09-15] VITALS: Ht 177.8 cm; Wt 83.9 kg
[2019-09-15] MEDS ORDERED: PREDNISONE 20 M20 M1 PO (16:49)
[2019-09-15] MEDS ORDERED: ZPAK PO (16:49)
[2019-09-15 16:55] VITALS: BP 130/90
== END 2019-09-15 16:56 | disposition home or self-care (01) ==
LOC: M.ERS 16:07
DX: J40 Bronchitis, not specified as acute or chronic (principal); K21.9 Gastro-esophageal reflux disease without esophagitis; I10 Essential (primary) hypertension; F17.210 Nicotine dependence, cigarettes, uncomplicated

== ENCOUNTER 2019-09-30 17:34 | Emergency (ER) | payer OTHER, MEDICAID ==
[~2019-09-30] VITALS: Ht 177.8 cm; Wt 84.8 kg
[2019-09-30] MEDS ORDERED: FLEXERIL PO (17:41)
[2019-09-30] MEDS ORDERED: PROAIR HFA8.5 GM INH (18:41)
[2019-09-30] MEDS ORDERED: HYDROXYZINE HCL25 M2 PO (18:41)
[2019-09-30 18:52] VITALS: BP 131/91
== END 2019-09-30 18:54 | disposition home or self-care (01) ==
LOC: M.ERS 17:34
DX: R05 Cough (principal); R06.02 Shortness of breath; F41.9 Anxiety disorder, unspecified; I10 Essential (primary) hypertension; K21.9 Gastro-esophageal reflux disease without esophagitis; F17.210 Nicotine dependence, cigarettes, uncomplicated

== ENCOUNTER 2019-10-23 06:42 | Emergency (ER) | payer OTHER, MEDICAID ==
[~2019-10-23] VITALS: Ht 177.8 cm; Wt 81.7 kg
[~2019-10-23 06:42] MED LIST changes: +HYDROXYZINE HCL25 M2 PO
[2019-10-23 07:55] LABS: ABSOLUTE BASOPHILS 0.1 thou/uL (0.0-0.2); ABSOLUTE EOSINOPHILS 0.4 thou/uL (0.0-0.7); ABSOLUTE LYMPHOCYTES 3.7 thou/uL (0.8-5.3); ABSOLUTE MONOCYTES 0.5 thou/uL (0.0-1.2); ABSOLUTE NEUTROPHILS 2.8 thou/uL (1.6-8.1); BASOPHILS 1.3 %; EOSINOPHILS 4.9 %; HEMATOCRIT 48.4 % (42.0-52.0); HEMOGLOBIN 16.9 gm/dL (14.0-18.0); LYMPHOCYTES 49.5 %; MCH 31.9 pg (26.0-34.0); MCHC 34.8 g/dL (28.0-37.0); MCV 91.5 fL (80.0-100.0); MONOCYTES 6.8 %; MPV 7.4 fl. (7.2-11.1); NUCLEATED RBCS 0 /100WBC; PLATELET COUNT* 205 thou/uL (150-400); POLYS 37.5 %; RBC 5.29 mil/uL (4.50-6.00); RDW-CV 13.4 % (10.5-14.5); WBC 7.4 thou/uL (4.0-11.0)
[2019-10-23 08:07] LABS: CALCIUM 8.6 mg/dL (8.5-10.1); CREATININE 1.1 mg/dL (0.6-1.3); POTASSIUM 4.1 mmol/L (3.5-5.1)
[2019-10-23 08:12] LABS: ALBUMIN 3.9 g/dL (3.4-5.0); TOTAL BILIRUBIN 0.5 mg/dL (<0.1-1.0); TOTAL PROTEIN 6.6 g/dL (6.4-8.2)
[2019-10-23 08:15] LABS: URINE BILIRUBIN NEGATIVE (Negative); URINE BLOOD NEGATIVE (Negative); URINE CLARITY CLEAR; URINE COLOR YELLOW; URINE GLUCOSE-RANDOM NEGATIVE (Negative); URINE KETONES NEGATIVE (Negative); URINE LEUKOCYTES NEGATIVE (Negative); URINE NITRITE NEGATIVE (Negative); URINE PROTEIN NEGATIVE (Negative); URINE SPECIFIC GRAVITY <= 1.005 (1.005-1.030); URINE UROBILINOGEN 0.2 E.U./dl (0.2-1.0)
[2019-10-23 08:30] LABS: AMP/METHAMP Negative (Negative); BARBITURATES Negative (Negative); BENZODIAZEPINES Negative (Negative); COCAINE Negative (Negative); METHADONE Negative (Negative); OPIATES Negative (Negative); PCP Negative (Negative); THC Negative (Negative)
[2019-10-23] MEDS ORDERED: AMITRIPTYLINE H75 M1 PO (10:25)
[2019-10-23] MEDS ORDERED: TORADOL 10 MG T10 MG PO (10:25)
[2019-10-23 10:39] VITALS: BP 137/93
--- NOTE | 2019-10-23 17:11 | EKG ---
[place] [address] ELECTROCARDIOGRAM REPORT Name: KAROLINA EPPS Room: [facility]#: [id number] Admission: 10/23/19 Attend Phys: Discharge: 10/23/19 Date of : [birth year] Report #: [id number] THIS REPORT FOR: //name// [facility] ED Test Date: 2019-10-23 Test Time: 06:52:03 Pat Name: KAROLINA EPPS Department: Room: Gender: M Pattern Marker: KRUPA : 1980 Requested By: Fabiana Mason Order Number: [id number] MD: Dandy Wise Measurements Intervals [place] Rate: 74 P: 52 SC: 131 QRS: 22 QRSD: 95 T: 28 QT: 382 QTc: 424 Interpretive Statements Sinus rhythm Compared to ECG 06/12/2019 13:26:33 No significant changes Electronically Signed On 10-23-2019 17:10:38 ELECTRICAL MAINTENANCE TECHNICIAN by Dandy Wise [email or web address] <ELECTRONICALLY SIGNED> By: Dandy Wise MD, [facility] 10/23/19 1710 0652 0652 Dandy Wise MD, [facility] /EPI
== END 2019-10-23 10:47 | disposition home or self-care (01) ==
LOC: M.ERS 06:42
PROVIDERS: Personal Emergency Response Attendant
DX: R07.89 Other chest pain (principal); I10 Essential (primary) hypertension; K21.9 Gastro-esophageal reflux disease without esophagitis; F17.210 Nicotine dependence, cigarettes, uncomplicated; Z79.899 Other long term (current) drug therapy

== ENCOUNTER 2019-12-10 18:39 | Emergency (ER) | payer OTHER, MEDICAID ==
[~2019-12-10] VITALS: Ht 177.8 cm; Wt 86.2 kg
[~2019-12-10 18:39] MED LIST changes: +AMITRIPTYLINE H75 M1 PO; +TORADOL 10 MG T10 MG PO
[2019-12-10] MEDS ORDERED: AMLODIPINE BESY10 MG PO (18:47)
[2019-12-10] MEDS ORDERED: NAPROSYN500 MG PO (19:06)
[2019-12-10] MEDS ORDERED: PENICILLIN VK500 MG PO (19:06)
[2019-12-10 19:27] VITALS: BP 155/75
== END 2019-12-10 19:29 | disposition home or self-care (01) ==
LOC: M.ERS 18:39
DX: K04.7 Periapical abscess without sinus (principal); K02.9 Dental caries, unspecified; I10 Essential (primary) hypertension; K21.9 Gastro-esophageal reflux disease without esophagitis; F17.210 Nicotine dependence, cigarettes, uncomplicated

== ENCOUNTER 2019-12-23 16:43 | Emergency (ER) | payer OTHER, MEDICAID ==
[~2019-12-23] VITALS: Ht 177.8 cm; Wt 84.8 kg
[~2019-12-23 16:43] MED LIST changes: +AMLODIPINE BESY10 MG PO; +PENICILLIN VK500 MG PO
[2019-12-23] MEDS ORDERED: NAPROSYN500 MG PO (17:54)
[2019-12-23] MEDS ORDERED: CLEOCIN HCL300 MG PO (17:54)
[2019-12-23 18:08] VITALS: BP 157/107
== END 2019-12-23 18:09 | disposition home or self-care (01) ==
LOC: M.ERS 16:43
DX: K02.9 Dental caries, unspecified (principal); I10 Essential (primary) hypertension; K21.9 Gastro-esophageal reflux disease without esophagitis; F41.9 Anxiety disorder, unspecified; F17.210 Nicotine dependence, cigarettes, uncomplicated

== ENCOUNTER 2019-12-31 19:31 | Emergency (ER) | payer OTHER, MEDICAID ==
[~2019-12-31] VITALS: Ht 180.3 cm; Wt 83.9 kg
[2019-12-31 20:23] LABS: ABSOLUTE EOSINOPHILS 0.3 thou/uL (0.0-0.7); ABSOLUTE LYMPHOCYTES 3.3 thou/uL (0.8-5.3); ABSOLUTE MONOCYTES 0.5 thou/uL (0.0-1.2); ABSOLUTE NEUTROPHILS 4.5 thou/uL (1.6-8.1); BASOPHILS 0.4 %; EOSINOPHILS 3.9 %; HEMATOCRIT 51.1 % (42.0-52.0); HEMOGLOBIN 17.7 gm/dL (14.0-18.0); LYMPHOCYTES 38.4 %; MCH 32.2 pg (26.0-34.0); MCHC 34.6 g/dL (28.0-37.0); MCV 92.9 fL (80.0-100.0); MONOCYTES 5.6 %; MPV 7.9 fl. (7.2-11.1); NUCLEATED RBCS 0 /100WBC; PLATELET COUNT* 231 thou/uL (150-400); POLYS 51.7 %; RDW-CV 14.5 % (10.5-14.5); WBC 8.7 thou/uL (4.0-11.0)
[2019-12-31 20:28] LABS: CREATININE 0.9 mg/dL (0.6-1.3); POTASSIUM 4.1 mmol/L (3.5-5.1)
[2019-12-31 20:29] LABS: PROTIME 10.7 Seconds (9.20-11.50)
[2019-12-31 20:33] LABS: ALBUMIN 4.9 g/dL (3.4-5.0); TOTAL BILIRUBIN 0.6 mg/dL (<0.1-1.0); TOTAL PROTEIN 7.2 g/dL (6.4-8.2)
[2019-12-31] MEDS ORDERED: CARVEDILOL6.25 M1 PO (21:32)
[2019-12-31] MEDS ORDERED: CARAFATE 1 GM TA1 GM PO (21:32)
[2019-12-31 21:40] VITALS: BP 135/88
--- NOTE | 2020-01-01 10:15 | EKG ---
[place] [address] ELECTROCARDIOGRAM REPORT Name: KAROLINA EPPS Room: [facility]#: [id number] Admission: 12/31/19 Attend Phys: Discharge: 12/31/19 Date of : [birth year] Date of Service: 12/31/191939 Report #: [id number] THIS REPORT FOR: //name// [facility] ED Test Date: 2019-12-31 Test Time: 19:40:48 Pat Name: KAROLINA EPPS Department: Room: Gender: Wool Washer: [place] : 1980 Requested By: Fabiana Mason Order Number: [id number] Alisha MD: Moncho Mcdaniels Measurements Intervals [place] Rate: 99 P: 61 MA: 131 QRS: 35 QRSD: 88 T: 46 QT: 350 QTc: 450 Interpretive Statements Sinus rhythm Compared to ECG 10/23/2019 06:52:03 No significant changes Electronically Signed On 01-01-2020 10:13:42 CDT by Moncho Mcdaniels [email or web address] <ELECTRONICALLY SIGNED> By: Moncho Mcdaniels MD, [facility] 01/01/20 1013 39 39 Moncho Mcdaniels MD, [facility] /EPI
== END 2019-12-31 21:42 | disposition home or self-care (01) ==
LOC: M.ERS 19:31
PROVIDERS: Personal Emergency Response Attendant
DX: I16.0 Hypertensive urgency (principal); I10 Essential (primary) hypertension; K21.9 Gastro-esophageal reflux disease without esophagitis; F17.210 Nicotine dependence, cigarettes, uncomplicated

== ENCOUNTER 2020-01-21 14:41 | Emergency (ER) | payer OTHER, MEDICAID ==
[~2020-01-21] VITALS: Ht 175.3 cm; Wt 86.2 kg
[~2020-01-21 14:41] MED LIST changes: +CARAFATE 1 GM TA1 GM PO
[2020-01-21] MEDS ORDERED: PROAIR HFA8.5 GM INH (15:30)
[2020-01-21] MEDS ORDERED: NYSTATIN100000 UNI PO (15:30)
[2020-01-21] MEDS ORDERED: DOXYCYCLINE 10100 MG PO (15:30)
[2020-01-21 15:39] VITALS: BP 163/70
--- NOTE | 2020-01-22 10:59 | EKG ---
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: [facility] : 1980 Requested By: David Larios Order Number: [id number] MD: Damien Napoles Measurements Intervals [place] Rate: 82 P: 42 VT: 125 QRS: 37 QRSD: 84 T: 14 QT: 370 QTc: 432 Interpretive Statements Sinus rhythm Abnormal R-wave progression, early transition Compared to ECG 12/31/2019 19:40:48 No significant changes Electronically Signed On 01-22-2020 10:58:00 CDT by Damien Napoles [email or web address] <ELECTRONICALLY SIGNED> By: Damien Napoles MD, [facility] 01/22/20 1058 1519 1519 Damien Napoles MD, [facility] /EPI
== END 2020-01-21 15:40 | disposition home or self-care (01) ==
LOC: M.ERS 14:41
DX: B37.0 Candidal stomatitis (principal); R06.00 Dyspnea, unspecified; I10 Essential (primary) hypertension; K21.9 Gastro-esophageal reflux disease without esophagitis; F41.9 Anxiety disorder, unspecified; F17.210 Nicotine dependence, cigarettes, uncomplicated

== ENCOUNTER 2020-02-22 15:45 | Emergency (ER) | payer OTHER, MEDICAID ==
[~2020-02-22] VITALS: Ht 175.3 cm; Wt 83.9 kg
[~2020-02-22 15:45] MED LIST changes: +NYSTATIN100000 UNI PO
[2020-02-22] MEDS ORDERED: [UNRECOGNIZED DRUG - REMARK] (15:58)
[2020-02-22] MEDS ORDERED: CLONAZEPAM 0.50.5 M1 PO (15:58)
[2020-02-22] MEDS ORDERED: [UNRECOGNIZED DRUG - REMARK] (15:58)
[2020-02-22 16:32] LABS: ABSOLUTE BASOPHILS 0.1 thou/uL (0.0-0.2); ABSOLUTE EOSINOPHILS 0.4 thou/uL (0.0-0.7); ABSOLUTE MONOCYTES 0.5 thou/uL (0.0-1.2); ABSOLUTE NEUTROPHILS 4.4 thou/uL (1.6-8.1); BASOPHILS 1.3 %; EOSINOPHILS 4.9 %; HEMATOCRIT 49.7 % (42.0-52.0); HEMOGLOBIN 17.2 gm/dL (14.0-18.0); LYMPHOCYTES 35.2 %; MCH 32.5 pg (26.0-34.0); MCHC 34.6 g/dL (28.0-37.0); MCV 93.9 fL (80.0-100.0); MONOCYTES 6.1 %; NUCLEATED RBCS 0 /100WBC; PLATELET COUNT* 241 thou/uL (150-400); POLYS 52.5 %; RBC 5.29 mil/uL (4.50-6.00); RDW-CV 13.9 % (10.5-14.5); WBC 8.4 thou/uL (4.0-11.0)
[2020-02-22 16:45] LABS: CALCIUM 8.7 mg/dL (8.5-10.1); CREATININE 1.1 mg/dL (0.6-1.3); POTASSIUM 3.8 mmol/L (3.5-5.1)
[2020-02-22 16:49] LABS: ALBUMIN 4.3 g/dL (3.4-5.0); TOTAL BILIRUBIN 0.4 mg/dL (<0.1-1.0); TOTAL PROTEIN 7.1 g/dL (6.4-8.2)
[2020-02-22] MEDS ORDERED: BUTALB-APAP-CA1 EACH PO (17:25)
[2020-02-22] MEDS ORDERED: PREDNISONE 20 M20 M1 PO (17:25)
[2020-02-22 17:40] VITALS: BP 123/83
--- NOTE | 2020-02-23 11:07 | EKG ---
[place] [address] ELECTROCARDIOGRAM REPORT Name: KAROLINA EPPS Room: [facility]#: [id number] Admission: 02/22/20 Attend Phys: Discharge: 02/22/20 Date of : [birth year] Date of Service: 02/22/20 1708 Report #: [id number] THIS REPORT FOR: //name// [facility] ED Test Date: 2020-02-22 Test Time: 17:08:38 Pat Name: KAROLINA EPPS Department: Room: Gender: Career Agent: : 1980 Requested By: Adia Paige Order Number: [id number] MD: Damien Napoles Measurements Intervals [place] Rate: 81 P: 35 [place]: 140 QRS: 19 QRSD: 94 T: 28 QT: 371 QTc: 431 Interpretive Statements Sinus rhythm Baseline wander in lead(s) V3 Compared to ECG 01/21/2020 15:19:52 No significant changes Electronically Signed On 02-23-2020 11:05:53 CDT by Damien Napoles [email or web address] <ELECTRONICALLY SIGNED> By: Damien Napoles MD, [facility] 02/23/20 1105 1708 1708 Damien Napoles MD, [facility] /EPI
== END 2020-02-22 17:40 | disposition home or self-care (01) ==
LOC: M.ERS 15:45
PROVIDERS: Nurse Practitioner Family
DX: R51 Headache (principal); T78.49XA Other allergy, initial encounter; R42 Dizziness and giddiness; I10 Essential (primary) hypertension; K21.9 Gastro-esophageal reflux disease without esophagitis; X58.XXXA Exposure to other specified factors, initial encounter

== ENCOUNTER 2020-03-02 16:18 | Emergency (ER) | payer OTHER, MEDICAID ==
[~2020-03-02] VITALS: Ht 175.3 cm; Wt 86.2 kg
[~2020-03-02 16:18] MED LIST changes: +BUTALB-APAP-CA1 EACH PO; +CLONAZEPAM 0.50.5 M1 PO; +[UNRECOGNIZED DRUG - REMARK]; +[UNRECOGNIZED DRUG - REMARK]
[2020-03-02 16:47] LABS: ABSOLUTE BASOPHILS 0.1 thou/uL (0.0-0.2); ABSOLUTE EOSINOPHILS 0.4 thou/uL (0.0-0.7); ABSOLUTE LYMPHOCYTES 3.2 thou/uL (0.8-5.3); ABSOLUTE MONOCYTES 0.8 thou/uL (0.0-1.2); ABSOLUTE NEUTROPHILS 6.5 thou/uL (1.6-8.1); BASOPHILS 0.9 %; EOSINOPHILS 3.3 %; HEMATOCRIT 48.2 % (42.0-52.0); HEMOGLOBIN 16.6 gm/dL (14.0-18.0); LYMPHOCYTES 29.3 %; MCH 32.7 pg (26.0-34.0); MCHC 34.5 g/dL (28.0-37.0); MCV 94.8 fL (80.0-100.0); MONOCYTES 7.3 %; MPV 7.9 fl. (7.2-11.1); NUCLEATED RBCS 0 /100WBC; PLATELET COUNT* 244 thou/uL (150-400); POLYS 59.2 %; RBC 5.08 mil/uL (4.50-6.00); RDW-CV 13.9 % (10.5-14.5); WBC 10.9 thou/uL (4.0-11.0)
[2020-03-02 16:56] LABS: CALCIUM 8.5 mg/dL (8.5-10.1); POTASSIUM 3.7 mmol/L (3.5-5.1)
[2020-03-02 17:07] LABS: ALBUMIN 3.8 g/dL (3.4-5.0); MAGNESIUM 2.1 mg/dL (1.8-2.4); TOTAL BILIRUBIN 0.5 mg/dL (<0.1-1.0); TOTAL PROTEIN 6.5 g/dL (6.4-8.2)
[2020-03-02] MEDS ORDERED: IBUPROFEN 800800 M1 PO (18:27)
[2020-03-02] MEDS ORDERED: FLEXERIL PO (18:27)
[2020-03-02 19:44] VITALS: BP 119/80
--- NOTE | 2020-03-03 13:14 | EKG ---
[place] [address] ELECTROCARDIOGRAM REPORT Name: KAROLINA EPPS Room: [facility]#: [id number] Admission: 03/02/20 Attend Phys: Discharge: 03/02/20 Date of : [birth year] Date of Service: 03/02/20 1620 Report #: [id number] THIS REPORT FOR: //name// [facility] ED Test Date: 2020-03-02 Test Time: 16:20:39 Pat Name: KAROLINA EPPS Department: Room: Gender: Technology Support Analyst: Lanre : 1980 Requested By: Luis Dawson Order Number: [id number] MD: Moncho Mcdaniels Measurements Intervals [place] Rate: 94 P: 54 DC: 129 QRS: 21 QRSD: 86 T: 24 QT: 342 QTc: 428 Interpretive Statements Sinus rhythm Compared to ECG 02/22/2020 17:08:38 No significant changes Electronically Signed On 03-03-2020 13:12:37 CDT by Moncho Mcdaniels [email or web address] <ELECTRONICALLY SIGNED> By: Moncho Mcdaniels MD, [facility] 03/03/20 1312 1620 1620 Moncho Mcdaniels MD, [facility] /EPI
--- NOTE | 2020-03-03 13:14 | EKG ---
[place] [address] ELECTROCARDIOGRAM REPORT Name: KAROLINA EPPS Room: [facility]#: [id number] Admission: 03/02/20 Attend Phys: Discharge: 03/02/20 Date of : [birth year] Date of Service: 03/02/201827 Report #: [id number] THIS REPORT FOR: //name// [facility] ED Test Date: 2020-03-02 Test Time: 18:28:26 Pat Name: KAROLINA EPPS Department: Room: Gender: Electronic Scanner Operator: [facility] : 1980 Requested By: Luis Dawson Order Number: [id number] MD: Moncho Mcdaniels Measurements Intervals [place] Rate: 77 P: 28 SD: 120 QRS: 19 QRSD: 87 T: 22 QT: 362 QTc: 410 Interpretive Statements Sinus rhythm Compared to ECG 02/22/2020 17:08:38 No significant changes Electronically Signed On 03-03-2020 13:12:51 CDT by Moncho Mcdaniels [email or web address] <ELECTRONICALLY SIGNED> By: Moncho Mcdaniels MD, [facility] 03/03/20 131 27 27 Moncho Mcdaniels MD, [facility] /EPI
== END 2020-03-02 19:45 | disposition home or self-care (01) ==
LOC: M.ERS 16:18
PROVIDERS: Emergency Medicine Emergency Medical Services
DX: R07.89 Other chest pain (principal); K21.9 Gastro-esophageal reflux disease without esophagitis; I10 Essential (primary) hypertension; F17.210 Nicotine dependence, cigarettes, uncomplicated; Z88.8 Allergy status to other drugs, medicaments and biological substances

== ENCOUNTER 2020-03-09 18:27 | Emergency (ER) | payer OTHER, MEDICAID ==
[~2020-03-09] VITALS: Ht 175.3 cm; Wt 86.2 kg
[2020-03-09 18:49] LABS: ABSOLUTE EOSINOPHILS 0.3 thou/uL (0.0-0.7); ABSOLUTE LYMPHOCYTES 2.7 thou/uL (0.8-5.3); ABSOLUTE MONOCYTES 0.5 thou/uL (0.0-1.2); ABSOLUTE NEUTROPHILS 4.9 thou/uL (1.6-8.1); BASOPHILS 0.4 %; EOSINOPHILS 3.8 %; HEMATOCRIT 44.8 % (42.0-52.0); HEMOGLOBIN 15.5 gm/dL (14.0-18.0); LYMPHOCYTES 32.2 %; MCH 32.7 pg (26.0-34.0); MCHC 34.5 g/dL (28.0-37.0); MCV 94.6 fL (80.0-100.0); MONOCYTES 6.2 %; MPV 7.8 fl. (7.2-11.1); NUCLEATED RBCS 0 /100WBC; PLATELET COUNT* 210 thou/uL (150-400); POLYS 57.4 %; RBC 4.74 mil/uL (4.50-6.00); RDW-CV 13.9 % (10.5-14.5); WBC 8.5 thou/uL (4.0-11.0)
[2020-03-09 18:59] LABS: CALCIUM 8.3 mg/dL (8.5-10.1); CREATININE 1.1 mg/dL (0.6-1.3); POTASSIUM 3.9 mmol/L (3.5-5.1)
[2020-03-09 19:08] LABS: ALBUMIN 3.7 g/dL (3.4-5.0); MAGNESIUM 1.9 mg/dL (1.8-2.4); TOTAL BILIRUBIN 0.6 mg/dL (<0.1-1.0); TOTAL PROTEIN 6.5 g/dL (6.4-8.2)
[2020-03-09 19:35] LABS: URINE BILIRUBIN NEGATIVE (Negative); URINE BLOOD NEGATIVE (Negative); URINE CLARITY CLEAR; URINE COLOR YELLOW; URINE GLUCOSE-RANDOM NEGATIVE (Negative); URINE KETONES NEGATIVE (Negative); URINE LEUKOCYTES-REFLEX NEGATIVE (Negative); URINE NITRITE-REFLEX NEGATIVE (Negative); URINE PROTEIN NEGATIVE (Negative); URINE SPECIFIC GRAVITY <= 1.005 (1.005-1.030); URINE UROBILINOGEN 0.2 E.U./dl (0.2-1.0)
[2020-03-09 19:41] LABS: AMP/METHAMP Negative (Negative); BARBITURATES Negative (Negative); BENZODIAZEPINES Negative (Negative); COCAINE Negative (Negative); METHADONE Negative (Negative); OPIATES POSITIVE (Negative); PCP Negative (Negative); THC Negative (Negative)
[2020-03-09 21:40] VITALS: BP 142/90
--- NOTE | 2020-03-10 11:07 | EKG ---
[place] [address] ELECTROCARDIOGRAM REPORT Name: KAROLINA EPPS Room: [facility]#: [id number] Admission: 03/09/20 Attend Phys: Discharge: 03/09/20 Date of : [birth year] Date of Service: 03/09/201828 Report #: [id number] THIS REPORT FOR: //name// [facility] ED Test Date: 2020-03-09 Test Time: 18:29:24 Pat Name: KAROLINA EPPS Department: Room: Gender: Aws Solution Architect: : 1980 Requested By: Luis Dawson Order Number: [id number] MD: Damien Napoles Measurements Intervals [place] Rate: 85 P: 57 [place]: 134 QRS: 38 QRSD: 88 T: 41 QT: 360 QTc: 428 Interpretive Statements Sinus rhythm Compared to ECG 03/02/2020 18:28:26 No significant changes Electronically Signed On 03-10-2020 11:05:58 CDT by Damien Napoles [email or web address] <ELECTRONICALLY SIGNED> By: Damien Napoles MD, [facility] 03/10/20 1105 28 28 Damien Napoles MD, [facility] /EPI
== END 2020-03-09 21:40 | disposition home or self-care (01) ==
LOC: M.ERS 18:27
PROVIDERS: Emergency Medicine; Emergency Medicine Emergency Medical Services
DX: R51 Headache (principal); R07.89 Other chest pain; I10 Essential (primary) hypertension; K21.9 Gastro-esophageal reflux disease without esophagitis; F41.9 Anxiety disorder, unspecified; F17.210 Nicotine dependence, cigarettes, uncomplicated

== ENCOUNTER 2020-04-09 19:43 | Emergency (ER) | payer OTHER, MEDICAID ==
[~2020-04-09] VITALS: Ht 175.3 cm; Wt 84.0 kg
[2020-04-09] MEDS ORDERED: FLEXERIL (20:05)
[2020-04-09] MEDS ORDERED: AMLODIPINE (20:05)
[2020-04-09 21:11] LABS: ABSOLUTE EOSINOPHILS 0.4 thou/uL (0.0-0.7); ABSOLUTE LYMPHOCYTES 2.8 thou/uL (0.8-5.3); ABSOLUTE MONOCYTES 0.5 thou/uL (0.0-1.2); ABSOLUTE NEUTROPHILS 4.6 thou/uL (1.6-8.1); BASOPHILS 0.3 %; EOSINOPHILS 4.3 %; HEMATOCRIT 47.1 % (42.0-52.0); HEMOGLOBIN 16.6 gm/dL (14.0-18.0); LYMPHOCYTES 34.2 %; MCH 32.8 pg (26.0-34.0); MCHC 35.3 g/dL (28.0-37.0); MCV 92.9 fL (80.0-100.0); MONOCYTES 5.5 %; NUCLEATED RBCS 0 /100WBC; PLATELET COUNT* 232 thou/uL (150-400); POLYS 55.7 %; RBC 5.06 mil/uL (4.50-6.00); RDW-CV 13.1 % (10.5-14.5); WBC 8.2 thou/uL (4.0-11.0)
[2020-04-09 21:21] LABS: CALCIUM 8.9 mg/dL (8.5-10.1); POTASSIUM 3.7 mmol/L (3.5-5.1)
[2020-04-09 21:32] LABS: ALBUMIN 4.1 g/dL (3.4-5.0); PHOSPHORUS* 3.5 mg/dL (2.5-4.9); TOTAL BILIRUBIN 0.6 mg/dL (<0.1-1.0); TOTAL PROTEIN 6.9 g/dL (6.4-8.2)
[2020-04-09 21:54] LABS: URINE BILIRUBIN NEGATIVE (Negative); URINE BLOOD NEGATIVE (Negative); URINE CLARITY CLEAR; URINE COLOR YELLOW; URINE GLUCOSE-RANDOM NEGATIVE (Negative); URINE KETONES NEGATIVE (Negative); URINE LEUKOCYTES-REFLEX NEGATIVE (Negative); URINE NITRITE-REFLEX NEGATIVE (Negative); URINE PROTEIN NEGATIVE (Negative); URINE UROBILINOGEN 0.2 E.U./dl (0.2-1.0)
[2020-04-09 21:58] LABS: AMP/METHAMP Negative (Negative); BARBITURATES Negative (Negative); BENZODIAZEPINES Negative (Negative); COCAINE Negative (Negative); METHADONE Negative (Negative); OPIATES Negative (Negative); PCP Negative (Negative); THC Negative (Negative)
[2020-04-09] MEDS ORDERED: TORADOL 10 MG T10 MG PO (22:20)
[2020-04-09 22:35] VITALS: BP 135/89
--- NOTE | 2020-04-10 11:38 | EKG ---
[place] [address] ELECTROCARDIOGRAM REPORT Name: KAROLINA EPPS Room: [facility]#: [id number] Admission: 04/09/20 Attend Phys: Discharge: 04/09/20 Date of : [birth year] Date of Service: 04/09/202004 Report #: [id number] THIS REPORT FOR: //name// [facility] ED Test Date: 2020-04-09 Test Time: 20:05:52 Pat Name: KAROLINA EPPS Department: Room: Gender: Federal Law Clerk: [place] : 1980 Requested By: Fabiana Mason Order Number: [id number] MD: Moncho Mcdaniels Measurements Intervals [place] Rate: 84 P: 41 [place]: 132 QRS: 21 QRSD: 96 T: 25 QT: 352 QTc: 417 Interpretive Statements Sinus rhythm Compared to ECG 03/09/2020 18:29:24 No significant changes Electronically Signed On 04-10-2020 11:37:54 CDT by Moncho Mcdaniels [email or web address] <ELECTRONICALLY SIGNED> By: Moncho Mcdaniels MD, [facility] 04/10/20 1137 04 04 Moncho Mcdaniels MD, [facility] /EPI
== END 2020-04-09 22:35 | disposition home or self-care (01) ==
LOC: M.ERS 19:43
PROVIDERS: Personal Emergency Response Attendant
DX: M54.2 Cervicalgia (principal); R42 Dizziness and giddiness; R51 Headache; K21.9 Gastro-esophageal reflux disease without esophagitis; I10 Essential (primary) hypertension; F41.9 Anxiety disorder, unspecified; F43.10 Post-traumatic stress disorder, unspecified; F17.210 Nicotine dependence, cigarettes, uncomplicated; Z88.5 Allergy status to narcotic agent; Z79.899 Other long term (current) drug therapy

== ENCOUNTER 2020-04-20 21:00 | Emergency (ER) | payer OTHER, MEDICAID ==
[~2020-04-20] VITALS: Ht 175.3 cm; Wt 81.7 kg
[~2020-04-20 21:00] MED LIST changes: +AMLODIPINE; +FLEXERIL
[2020-04-20] MEDS ORDERED: NORVASC 2.5 MG2.5 M1 PO (21:19)
[2020-04-20 21:42] LABS: URINE BILIRUBIN NEGATIVE (Negative); URINE BLOOD NEGATIVE (Negative); URINE CLARITY CLEAR; URINE COLOR YELLOW; URINE GLUCOSE-RANDOM NEGATIVE (Negative); URINE KETONES TRACE (Negative); URINE LEUKOCYTES-REFLEX NEGATIVE (Negative); URINE NITRITE-REFLEX NEGATIVE (Negative); URINE PROTEIN NEGATIVE (Negative); URINE UROBILINOGEN 0.2 E.U./dl (0.2-1.0)
[2020-04-20 22:05] LABS: ABSOLUTE BASOPHILS 0.1 thou/uL (0.0-0.2); ABSOLUTE EOSINOPHILS 0.3 thou/uL (0.0-0.7); ABSOLUTE MONOCYTES 0.5 thou/uL (0.0-1.2); ABSOLUTE NEUTROPHILS 4.2 thou/uL (1.6-8.1); BASOPHILS 1.4 %; EOSINOPHILS 4.2 %; HEMATOCRIT 48.3 % (42.0-52.0); LYMPHOCYTES 36.7 %; MCH 32.4 pg (26.0-34.0); MCHC 35.2 g/dL (28.0-37.0); MCV 92.2 fL (80.0-100.0); MONOCYTES 6.2 %; MPV 8.2 fl. (7.2-11.1); NUCLEATED RBCS 0 /100WBC; PLATELET COUNT* 250 thou/uL (150-400); POLYS 51.5 %; RBC 5.24 mil/uL (4.50-6.00); RDW-CV 12.9 % (10.5-14.5); WBC 8.2 thou/uL (4.0-11.0)
[2020-04-20 22:21] LABS: CALCIUM 9.3 mg/dL (8.5-10.1); CREATININE 1.1 mg/dL (0.6-1.3); POTASSIUM 3.4 mmol/L (3.5-5.1)
[2020-04-20 22:27] LABS: ALBUMIN 4.7 g/dL (3.4-5.0); MAGNESIUM 2.1 mg/dL (1.8-2.4); TOTAL BILIRUBIN 0.8 mg/dL (<0.1-1.0); TOTAL PROTEIN 7.6 g/dL (6.4-8.2)
[2020-04-21 00:39] VITALS: BP 136/92
== END 2020-04-21 00:39 | disposition home or self-care (01) ==
LOC: M.ERS 21:00
PROVIDERS: Emergency Medicine
DX: R53.1 Weakness (principal); R42 Dizziness and giddiness; I10 Essential (primary) hypertension; K21.9 Gastro-esophageal reflux disease without esophagitis; F41.9 Anxiety disorder, unspecified; F17.210 Nicotine dependence, cigarettes, uncomplicated; Z88.6 Allergy status to analgesic agent

== ENCOUNTER 2020-04-28 20:33 | Emergency (ER) | payer OTHER, MEDICAID ==
[~2020-04-28] VITALS: Ht 177.8 cm; Wt 79.8 kg
[~2020-04-28 20:33] MED LIST changes: +NORVASC 2.5 MG2.5 M1 PO
[2020-04-28 21:57] LABS: ABSOLUTE BASOPHILS 0.1 thou/uL (0.0-0.2); ABSOLUTE EOSINOPHILS 0.5 thou/uL (0.0-0.7); ABSOLUTE LYMPHOCYTES 3.4 thou/uL (0.8-5.3); ABSOLUTE MONOCYTES 0.5 thou/uL (0.0-1.2); BASOPHILS 1.3 %; EOSINOPHILS 4.9 %; HEMATOCRIT 50.1 % (42.0-52.0); HEMOGLOBIN 17.4 gm/dL (14.0-18.0); LYMPHOCYTES 35.6 %; MCH 32.1 pg (26.0-34.0); MCHC 34.8 g/dL (28.0-37.0); MCV 92.4 fL (80.0-100.0); MONOCYTES 4.9 %; MPV 9.2 fl. (7.2-11.1); NUCLEATED RBCS 0 /100WBC; PLATELET COUNT* 253 thou/uL (150-400); POLYS 53.3 %; RBC 5.42 mil/uL (4.50-6.00); WBC 9.4 thou/uL (4.0-11.0)
[2020-04-28 21:59] LABS: CALCIUM 9.2 mg/dL (8.5-10.1); POTASSIUM 3.2 mmol/L (3.5-5.1)
[2020-04-28 22:00] LABS: AMP/METHAMP Negative (Negative); BARBITURATES Negative (Negative); BENZODIAZEPINES Negative (Negative); COCAINE Negative (Negative); METHADONE Negative (Negative); OPIATES Negative (Negative); PCP Negative (Negative); THC Negative (Negative)
[2020-04-28 22:10] LABS: ALBUMIN 4.3 g/dL (3.4-5.0); MAGNESIUM 2.1 mg/dL (1.8-2.4); TOTAL BILIRUBIN 0.6 mg/dL (<0.1-1.0); TOTAL PROTEIN 7.2 g/dL (6.4-8.2)
[2020-04-28 22:17] LABS: INR 1.1; PROTIME 10.9 Seconds (9.20-11.50)
[2020-04-28 23:58] VITALS: BP 136/72
--- NOTE | 2020-04-29 11:22 | EKG ---
[place] [address] ELECTROCARDIOGRAM REPORT Name: KAROLINA EPPS Room: [facility]#: [id number] Admission: 04/28/20 Attend Phys: Discharge: 04/29/20 Date of : [birth year] Date of Service: 04/28/202038 Report #: [id number] THIS REPORT FOR: //name// [facility] ED Test Date: 2020-04-28 Test Time: 20:39:30 Pat Name: KAROLINA EPPS Department: Room: Gender: Group Account Director: : 1980 Requested By: Suly Bautista Order Number: [id number] MD: Moncho Mcdaniels Measurements Intervals [place] Rate: 81 P: 26 [place]: 134 QRS: 21 QRSD: 89 T: -10 QT: 395 QTc: 459 Interpretive Statements Sinus rhythm artifact noted Borderline T abnormalities, inferior leads Compared to ECG 04/09/2020 20:05:52 no change Electronically Signed On 04-29-2020 11:22:05 CDT by Moncho Mcdaniels [email or web address] <ELECTRONICALLY SIGNED> By: Moncho Mcdaniels MD, [facility] 04/29/20 1122 38 38 Moncho Mcdaniels MD, [facility] /EPI
== END 2020-04-29 | disposition home or self-care (01) ==
LOC: M.ERS 20:33
PROVIDERS: Emergency Medicine
DX: F41.9 Anxiety disorder, unspecified (principal); I10 Essential (primary) hypertension; K21.9 Gastro-esophageal reflux disease without esophagitis; G89.29 Other chronic pain; F17.210 Nicotine dependence, cigarettes, uncomplicated; Z88.5 Allergy status to narcotic agent

== ENCOUNTER 2020-05-02 21:25 | Emergency (ER) | payer OTHER, MEDICAID ==
[~2020-05-02] VITALS: Ht 175.3 cm; Wt 78.9 kg
[2020-05-02 22:28] LABS: BE -2.1 mmol/L (-2 to +3); PCO2 30.6 mmHg (35.0-45.0); PO2 99.6 mmHg (75.0-100.0); pH 7.447 (7.340-7.450)
[2020-05-02 22:40] LABS: ABSOLUTE BASOPHILS 0.1 thou/uL (0.0-0.2); ABSOLUTE EOSINOPHILS 0.4 thou/uL (0.0-0.7); ABSOLUTE LYMPHOCYTES 2.7 thou/uL (0.8-5.3); ABSOLUTE MONOCYTES 0.5 thou/uL (0.0-1.2); ABSOLUTE NEUTROPHILS 3.9 thou/uL (1.6-8.1); BASOPHILS 1.5 %; EOSINOPHILS 5.5 %; HEMATOCRIT 47.1 % (42.0-52.0); HEMOGLOBIN 16.3 gm/dL (14.0-18.0); LYMPHOCYTES 35.7 %; MCH 32.1 pg (26.0-34.0); MCHC 34.7 g/dL (28.0-37.0); MCV 92.5 fL (80.0-100.0); MPV 8.6 fl. (7.2-11.1); NUCLEATED RBCS 0 /100WBC; PLATELET COUNT* 210 thou/uL (150-400); POLYS 51.3 %; RBC 5.09 mil/uL (4.50-6.00); RDW-CV 13.3 % (10.5-14.5); WBC 7.6 thou/uL (4.0-11.0)
[2020-05-02 22:41] LABS: URINE BILIRUBIN NEGATIVE (Negative); URINE BLOOD NEGATIVE (Negative); URINE CLARITY CLEAR; URINE COLOR YELLOW; URINE GLUCOSE-RANDOM NEGATIVE (Negative); URINE KETONES NEGATIVE (Negative); URINE LEUKOCYTES-REFLEX NEGATIVE (Negative); URINE NITRITE-REFLEX NEGATIVE (Negative); URINE PROTEIN NEGATIVE (Negative); URINE SPECIFIC GRAVITY <= 1.005 (1.005-1.030); URINE UROBILINOGEN 0.2 E.U./dl (0.2-1.0)
[2020-05-02 22:47] LABS: CALCIUM 8.9 mg/dL (8.5-10.1); CREATININE 1.1 mg/dL (0.6-1.3); POTASSIUM 3.3 mmol/L (3.5-5.1)
[2020-05-02 22:52] LABS: ALBUMIN 4.1 g/dL (3.4-5.0); TOTAL BILIRUBIN 0.5 mg/dL (<0.1-1.0); TOTAL PROTEIN 6.7 g/dL (6.4-8.2)
[2020-05-02] MEDS ORDERED: IBUPROFEN 600600 M1 PO (23:09)
[2020-05-03 00:13] VITALS: BP 118/75
== END 2020-05-03 00:14 | disposition home or self-care (01) ==
LOC: M.ERS 21:25
PROVIDERS: Personal Emergency Response Attendant
DX: R51 Headache (principal); I10 Essential (primary) hypertension; K21.9 Gastro-esophageal reflux disease without esophagitis; G89.29 Other chronic pain; F41.9 Anxiety disorder, unspecified; F17.210 Nicotine dependence, cigarettes, uncomplicated; Z88.6 Allergy status to analgesic agent

== ENCOUNTER 2020-05-11 11:59 | Emergency (ER) | payer OTHER, MEDICAID ==
[~2020-05-11] VITALS: Ht 175.3 cm; Wt 81.7 kg
[~2020-05-11 11:59] MED LIST changes: +IBUPROFEN 600600 M1 PO
[2020-05-11] MEDS ORDERED: SUDAFED 24-HOU240 MG PO (13:00)
[2020-05-11] MEDS ORDERED: BUTALB-APAP-CA1 EACH PO (13:00)
[2020-05-11 13:43] VITALS: BP 161/86
== END 2020-05-11 13:44 | disposition home or self-care (01) ==
LOC: M.ERS 11:59
DX: R09.81 Nasal congestion (principal); R51 Headache; I10 Essential (primary) hypertension; K21.9 Gastro-esophageal reflux disease without esophagitis; G89.29 Other chronic pain; F41.9 Anxiety disorder, unspecified; F17.210 Nicotine dependence, cigarettes, uncomplicated; Z88.6 Allergy status to analgesic agent

== ENCOUNTER 2020-05-22 22:23 | Emergency (ER) | payer OTHER, MEDICAID ==
[~2020-05-22] VITALS: Ht 177.8 cm; Wt 81.7 kg
[~2020-05-22 22:23] MED LIST changes: +SUDAFED 24-HOU240 MG PO
[2020-05-22] MEDS ORDERED: PERIDEX 0.12%473 M1 SWISH&SPIT (23:50)
[2020-05-22] MEDS ORDERED: TRAMADOL 50 MG50 MG PO (23:50)
[2020-05-22] MEDS ORDERED: AMOXICILLIN 50500 M1 PO (23:52)
[2020-05-23 00:25] VITALS: BP 133/98
== END 2020-05-23 00:26 | disposition home or self-care (01) ==
LOC: M.ERS 22:23
DX: K02.9 Dental caries, unspecified (principal); I10 Essential (primary) hypertension; K21.9 Gastro-esophageal reflux disease without esophagitis; G89.29 Other chronic pain; F41.9 Anxiety disorder, unspecified; F17.210 Nicotine dependence, cigarettes, uncomplicated; Z88.6 Allergy status to analgesic agent

== ENCOUNTER 2020-05-27 19:16 | Emergency (ER) | payer OTHER, MEDICAID ==
[~2020-05-27] VITALS: Ht 172.7 cm; Wt 81.7 kg
[~2020-05-27 19:16] MED LIST changes: +AMOXICILLIN 50500 M1 PO; +PERIDEX 0.12%473 M1 SWISH&SPIT; +TRAMADOL 50 MG50 MG PO
[2020-05-27 20:48] LABS: ABSOLUTE BASOPHILS 0.1 thou/uL (0.0-0.2); ABSOLUTE EOSINOPHILS 0.3 thou/uL (0.0-0.7); ABSOLUTE LYMPHOCYTES 2.6 thou/uL (0.8-5.3); ABSOLUTE MONOCYTES 0.4 thou/uL (0.0-1.2); ABSOLUTE NEUTROPHILS 4.1 thou/uL (1.6-8.1); BASOPHILS 1.5 %; EOSINOPHILS 4.3 %; HEMATOCRIT 47.5 % (42.0-52.0); HEMOGLOBIN 16.6 gm/dL (14.0-18.0); LYMPHOCYTES 34.3 %; MCH 32.3 pg (26.0-34.0); MCV 92.3 fL (80.0-100.0); MONOCYTES 5.4 %; NUCLEATED RBCS 0 /100WBC; PLATELET COUNT* 251 thou/uL (150-400); POLYS 54.5 %; RBC 5.15 mil/uL (4.50-6.00); RDW-CV 13.3 % (10.5-14.5); WBC 7.6 thou/uL (4.0-11.0)
[2020-05-27 20:56] LABS: CALCIUM 8.6 mg/dL (8.5-10.1); CREATININE 1.1 mg/dL (0.6-1.3); POTASSIUM 3.6 mmol/L (3.5-5.1)
[2020-05-27 20:57] LABS: URINE BLOOD NEGATIVE (Negative); URINE CLARITY CLEAR; URINE COLOR YELLOW; URINE GLUCOSE-RANDOM NEGATIVE (Negative); URINE KETONES TRACE (Negative); URINE LEUKOCYTES-REFLEX NEGATIVE (Negative); URINE NITRITE-REFLEX NEGATIVE (Negative); URINE PROTEIN TRACE (Negative); URINE SPECIFIC GRAVITY 1.025 (1.005-1.030)
[2020-05-27 20:58] LABS: ICTOTEST (BILI CONFIRMATORY) Negative (Negative); URINE BILIRUBIN 1+ (Negative)
[2020-05-27 21:01] LABS: TOTAL BILIRUBIN 0.7 mg/dL (<0.1-1.0); TOTAL PROTEIN 6.8 g/dL (6.4-8.2)
[2020-05-27 21:04] LABS: AMP/METHAMP Negative (Negative); BARBITURATES Negative (Negative); BENZODIAZEPINES Negative (Negative); COCAINE Negative (Negative); METHADONE Negative (Negative); OPIATES Negative (Negative); PCP Negative (Negative); THC Negative (Negative)
[2020-05-27 21:51] VITALS: BP 148/70
--- NOTE | 2020-05-28 17:23 | EKG ---
[place] [address] ELECTROCARDIOGRAM REPORT Name: KAROLINA EPPS Room: [facility]#: [id number] Admission: 05/27/20 Attend Phys: Discharge: 05/27/20 Date of : [birth year] Date of Service: 05/27/201926 Report #: [id number] THIS REPORT FOR: //name// [facility] ED Test Date: 2020-05-27 Test Time: 19:27:03 Pat Name: KAROLINA EPPS Department: Room: Gender: National Account Director: [facility] : 1980 Requested By: Fabiana Mason Order Number: [id number] MD: Damien Napoles Measurements Intervals [place] Rate: 78 P: 46 [place]: 128 QRS: 46 QRSD: 92 T: 42 QT: 366 QTc: 417 Interpretive Statements Sinus rhythm Baseline wander in lead(s) II,III,aVF Compared to ECG 04/28/2020 20:39:30 T-wave abnormality no longer present Electronically Signed On 05-28-2020 17:23:06 CDT by Damien Napoles [email or web address] <ELECTRONICALLY SIGNED> By: Damien Napoles MD, [facility] 05/28/20 1723 26 26 Damien Napoles MD, [facility] /EPI
== END 2020-05-27 21:52 | disposition home or self-care (01) ==
LOC: M.ERS 19:16
PROVIDERS: Personal Emergency Response Attendant
DX: E86.0 Dehydration (principal); R55 Syncope and collapse; Z20.828 Contact with and (suspected) exposure to other viral communicable diseases; I10 Essential (primary) hypertension; K21.9 Gastro-esophageal reflux disease without esophagitis; G89.29 Other chronic pain; F17.210 Nicotine dependence, cigarettes, uncomplicated; Z88.5 Allergy status to narcotic agent; Z79.899 Other long term (current) drug therapy

== ENCOUNTER 2020-06-12 10:23 | Emergency (ER) | payer OTHER, MEDICAID ==
[~2020-06-12] VITALS: Ht 175.3 cm; Wt 81.7 kg
[2020-06-12 11:17] LABS: ABSOLUTE EOSINOPHILS 0.4 thou/uL (0.0-0.7); ABSOLUTE LYMPHOCYTES 2.5 thou/uL (0.8-5.3); ABSOLUTE MONOCYTES 0.4 thou/uL (0.0-1.2); ABSOLUTE NEUTROPHILS 4.7 thou/uL (1.6-8.1); BASOPHILS 0.3 %; EOSINOPHILS 4.6 %; HEMATOCRIT 45.6 % (42.0-52.0); HEMOGLOBIN 15.9 gm/dL (14.0-18.0); LYMPHOCYTES 30.6 %; MCH 32.5 pg (26.0-34.0); MCHC 34.8 g/dL (28.0-37.0); MCV 93.4 fL (80.0-100.0); MONOCYTES 5.5 %; MPV 7.9 fl. (7.2-11.1); NUCLEATED RBCS 0 /100WBC; PLATELET COUNT* 219 thou/uL (150-400); RBC 4.88 mil/uL (4.50-6.00); RDW-CV 13.4 % (10.5-14.5)
[2020-06-12 11:27] LABS: CALCIUM 8.5 mg/dL (8.5-10.1); POTASSIUM 3.5 mmol/L (3.5-5.1)
[2020-06-12 11:38] LABS: ALBUMIN 3.9 g/dL (3.4-5.0); MAGNESIUM 1.9 mg/dL (1.8-2.4); TOTAL BILIRUBIN 0.6 mg/dL (<0.1-1.0); TOTAL PROTEIN 6.5 g/dL (6.4-8.2)
[2020-06-12] MEDS ORDERED: ZPAK PO (12:12)
[2020-06-12] MEDS ORDERED: ALLEGRA ALLERG180 MG PO (12:12)
[2020-06-12 12:27] VITALS: BP 135/89
--- NOTE | 2020-06-12 15:24 | EKG ---
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
== END 2020-06-12 12:27 | disposition home or self-care (01) ==
LOC: M.ERS 10:23
PROVIDERS: Emergency Medicine Emergency Medical Services
DX: J32.0 Chronic maxillary sinusitis (principal); I10 Essential (primary) hypertension; K21.9 Gastro-esophageal reflux disease without esophagitis; G89.29 Other chronic pain; F17.210 Nicotine dependence, cigarettes, uncomplicated; Z88.5 Allergy status to narcotic agent; Z79.899 Other long term (current) drug therapy

== ENCOUNTER 2020-06-24 17:26 | Emergency (ER) | payer OTHER, MEDICAID ==
[~2020-06-24] VITALS: Ht 177.8 cm; Wt 79.4 kg
[~2020-06-24 17:26] MED LIST changes: +ALLEGRA ALLERG180 MG PO
[2020-06-24] MEDS ORDERED: MEDROLDOSEPACK PO (19:35)
[2020-06-24] MEDS ORDERED: NORCO 5-325 TA1 EAC2 PO (19:35)
[2020-06-24 19:41] VITALS: BP 163/105
== END 2020-06-24 19:41 | disposition home or self-care (01) ==
LOC: M.ERS 17:26
DX: M54.42 Lumbago with sciatica, left side (principal); M54.41 Lumbago with sciatica, right side; I10 Essential (primary) hypertension; K21.9 Gastro-esophageal reflux disease without esophagitis; G89.29 Other chronic pain; Z88.5 Allergy status to narcotic agent

== ENCOUNTER 2020-06-30 16:38 | Emergency (ER) | payer OTHER, MEDICAID ==
[~2020-06-30] VITALS: Ht 175.3 cm; Wt 79.4 kg
[~2020-06-30 16:38] MED LIST changes: +NORCO 5-325 TA1 EAC2 PO
[2020-06-30 17:23] LABS: ABSOLUTE BASOPHILS 0.1 thou/uL (0.0-0.2); ABSOLUTE EOSINOPHILS 0.4 thou/uL (0.0-0.7); ABSOLUTE LYMPHOCYTES 2.6 thou/uL (0.8-5.3); ABSOLUTE MONOCYTES 0.6 thou/uL (0.0-1.2); ABSOLUTE NEUTROPHILS 6.1 thou/uL (1.6-8.1); BASOPHILS 1.2 %; EOSINOPHILS 4.1 %; HEMATOCRIT 47.1 % (42.0-52.0); HEMOGLOBIN 16.4 gm/dL (14.0-18.0); LYMPHOCYTES 26.4 %; MCH 32.4 pg (26.0-34.0); MCHC 34.9 g/dL (28.0-37.0); MCV 92.8 fL (80.0-100.0); MPV 7.3 fl. (7.2-11.1); NUCLEATED RBCS 0 /100WBC; PLATELET COUNT* 239 thou/uL (150-400); POLYS 62.3 %; RBC 5.07 mil/uL (4.50-6.00); RDW-CV 13.8 % (10.5-14.5); WBC 9.8 thou/uL (4.0-11.0)
[2020-06-30 17:33] LABS: CALCIUM 8.9 mg/dL (8.5-10.1); CREATININE 1.1 mg/dL (0.6-1.3); POTASSIUM 3.7 mmol/L (3.5-5.1)
[2020-06-30 17:37] LABS: ALBUMIN 3.9 g/dL (3.4-5.0); TOTAL BILIRUBIN 0.4 mg/dL (<0.1-1.0); TOTAL PROTEIN 6.4 g/dL (6.4-8.2)
[2020-06-30] MEDS ORDERED: IBUPROFEN 800800 M1 PO (17:44)
[2020-06-30 17:54] VITALS: BP 124/81
--- NOTE | 2020-07-01 14:57 | EKG ---
[place] [address] ELECTROCARDIOGRAM REPORT Name: KAROLINA EPPS Room: [facility]#: [id number] Admission: 06/30/20 Attend Phys: Discharge: 06/30/20 Date of : [birth year] Date of Service: 06/30/20 1646 Report #: [id number] THIS REPORT FOR: //name// [facility] ED Test Date: 2020-06-30 Test Time: 16:46:55 Pat Name: KAROLINA EPPS Department: Room: Gender: Records Management Engineer: : 1980 Requested By: Luis Dawson Order Number: [id number] MD: Damien Napoles Measurements Intervals [place] Rate: 88 P: 53 [place]: 131 QRS: 44 QRSD: 94 T: 1 QT: 361 QTc: 437 Interpretive Statements Sinus rhythm Borderline T abnormalities, anterior leads Baseline wander in lead(s) II,III,aVF Compared to ECG 06/12/2020 11:10:23 T-wave abnormality now present Electronically Signed On 07-01-2020 14:57:33 CDT by Damien Napoles [email or web address] <ELECTRONICALLY SIGNED> By: Damien Napoles MD, [facility] 07/01/20 1457 1646 1646 Damien Napoles MD, [facility] /EPI
== END 2020-06-30 17:55 | disposition home or self-care (01) ==
LOC: M.ERS 16:38
PROVIDERS: Emergency Medicine Emergency Medical Services
DX: J32.0 Chronic maxillary sinusitis (principal); R07.89 Other chest pain; I10 Essential (primary) hypertension; K21.9 Gastro-esophageal reflux disease without esophagitis; G89.29 Other chronic pain; F17.210 Nicotine dependence, cigarettes, uncomplicated; Z88.5 Allergy status to narcotic agent

== ENCOUNTER 2020-07-05 22:43 | Emergency (ER) | payer OTHER, MEDICAID ==
[~2020-07-05] VITALS: Ht 175.3 cm; Wt 79.4 kg
[2020-07-05 23:53] LABS: ABSOLUTE BASOPHILS 0.1 thou/uL (0.0-0.2); ABSOLUTE EOSINOPHILS 0.4 thou/uL (0.0-0.7); ABSOLUTE LYMPHOCYTES 2.5 thou/uL (0.8-5.3); ABSOLUTE MONOCYTES 0.4 thou/uL (0.0-1.2); ABSOLUTE NEUTROPHILS 5.1 thou/uL (1.6-8.1); BASOPHILS 1.4 %; EOSINOPHILS 5.1 %; HEMATOCRIT 48.3 % (42.0-52.0); HEMOGLOBIN 16.8 gm/dL (14.0-18.0); LYMPHOCYTES 28.8 %; MCH 32.6 pg (26.0-34.0); MCHC 34.9 g/dL (28.0-37.0); MCV 93.6 fL (80.0-100.0); MPV 7.5 fl. (7.2-11.1); NUCLEATED RBCS 0 /100WBC; PLATELET COUNT* 229 thou/uL (150-400); POLYS 59.7 %; RBC 5.16 mil/uL (4.50-6.00); RDW-CV 13.7 % (10.5-14.5); WBC 8.6 thou/uL (4.0-11.0)
[2020-07-06 00:02] LABS: CALCIUM 8.8 mg/dL (8.5-10.1); CREATININE 0.9 mg/dL (0.6-1.3); POTASSIUM 3.7 mmol/L (3.5-5.1)
[2020-07-06 00:06] LABS: ALBUMIN 4.1 g/dL (3.4-5.0); TOTAL BILIRUBIN 0.6 mg/dL (<0.1-1.0); TOTAL PROTEIN 6.6 g/dL (6.4-8.2)
[2020-07-06 00:53] VITALS: BP 132/78
--- NOTE | 2020-07-06 15:43 | EKG ---
[place] [address] ELECTROCARDIOGRAM REPORT Name: KAROLINA EPPS Room: [facility]#: [id number] Admission: 07/05/20 Attend Phys: Discharge: 07/06/20 Date of : [birth year] Date of Service: 07/05/208 Report #: [id number] THIS REPORT FOR: //name// [facility] ED Test Date: 2020-07-05 Test Time: 22:48:59 Pat Name: KAROLINA EPPS Department: Room: Gender: Surgical Instrument Repair Specialist: : 1980 Requested By: Fabiana Mason Order Number: [id number] MD: Dandy Wise Measurements Intervals [place] Rate: 80 P: 71 [place]: 133 QRS: 50 QRSD: 89 T: 59 QT: 417 QTc: 482 Interpretive Statements Sinus rhythm Compared to ECG 06/30/2020 16:46:55 T-wave abnormality no longer present Electronically Signed On 07-06-2020 15:43:35 CDT by Dandy Wise [email or web address] <ELECTRONICALLY SIGNED> By: Dandy Wise MD, [facility] 07/06/20 1543 2248 2248 Dandy Wise MD, [facility] /EPI
== END 2020-07-06 00:53 | disposition home or self-care (01) ==
LOC: M.ERS 22:43
PROVIDERS: Personal Emergency Response Attendant
DX: R07.89 Other chest pain (principal); I10 Essential (primary) hypertension; K21.9 Gastro-esophageal reflux disease without esophagitis; G89.29 Other chronic pain; F17.210 Nicotine dependence, cigarettes, uncomplicated; Z88.5 Allergy status to narcotic agent

== ENCOUNTER 2020-07-15 20:17 | Emergency (ER) | payer OTHER, MEDICAID ==
[~2020-07-15] VITALS: Ht 175.3 cm; Wt 79.4 kg
[2020-07-15] MEDS ORDERED: FLEXERIL PO ×2 (20:47→21:39)
[2020-07-15] MEDS ORDERED: HYDROCODON-ACE1 EA11 PO (20:48)
[2020-07-15] MEDS ORDERED: MEDROLDOSEPACK PO (21:39)
[2020-07-15] MEDS ORDERED: NORCO 5-325 TA1 EAC2 PO (21:39)
[2020-07-15 21:52] VITALS: BP 127/95
== END 2020-07-15 22:28 | disposition home or self-care (01) ==
LOC: M.ERS 20:17
DX: M54.9 Dorsalgia, unspecified (principal); R25.2 Cramp and spasm; I10 Essential (primary) hypertension; K21.9 Gastro-esophageal reflux disease without esophagitis; F17.210 Nicotine dependence, cigarettes, uncomplicated; Z79.899 Other long term (current) drug therapy; Z88.6 Allergy status to analgesic agent

== ENCOUNTER 2020-07-26 17:24 | Emergency (ER) | payer OTHER, MEDICAID ==
[~2020-07-26] VITALS: Ht 175.3 cm; Wt 81.7 kg
[~2020-07-26 17:24] MED LIST changes: +HYDROCODON-ACE1 EA11 PO
[2020-07-26 17:34] VITALS: BP 164/98
== END 2020-07-26 18:09 | disposition home or self-care (01) ==
LOC: M.ERS 17:24
DX: G89.29 Other chronic pain (principal); M54.9 Dorsalgia, unspecified; R09.89 Other specified symptoms and signs involving the circulatory and respiratory systems; F41.9 Anxiety disorder, unspecified; R22.0 Localized swelling, mass and lump, head; I10 Essential (primary) hypertension; K21.9 Gastro-esophageal reflux disease without esophagitis; Z79.899 Other long term (current) drug therapy; Z88.6 Allergy status to analgesic agent

== ENCOUNTER 2020-08-01 20:57 | Emergency (ER) | payer OTHER, MEDICAID ==
[~2020-08-01] VITALS: Ht 175.3 cm; Wt 81.7 kg
[2020-08-01] MEDS ORDERED: ALLEGRA-D 24 H1 EACH PO (21:38)
[2020-08-01] MEDS ORDERED: NAPROSYN500 MG PO (21:38)
[2020-08-01] MEDS ORDERED: AMOXICILLIN 50500 MG PO (21:38)
[2020-08-01 21:43] VITALS: BP 120/72
== END 2020-08-01 21:44 | disposition home or self-care (01) ==
LOC: M.ERS 20:57
DX: J32.9 Chronic sinusitis, unspecified (principal); I10 Essential (primary) hypertension; K21.9 Gastro-esophageal reflux disease without esophagitis; F17.210 Nicotine dependence, cigarettes, uncomplicated; Z79.899 Other long term (current) drug therapy; Z88.6 Allergy status to analgesic agent

== ENCOUNTER 2020-08-06 08:41 | Emergency (ER) | payer OTHER, MEDICAID ==
[~2020-08-06] VITALS: Ht 175.3 cm; Wt 81.7 kg
[~2020-08-06 08:41] MED LIST changes: +ALLEGRA-D 24 H1 EACH PO
[2020-08-06 08:51] VITALS: BP 173/103
[2020-08-06] MEDS ORDERED: DOXYCYCLINE 10100 MG PO (08:59)
== END 2020-08-06 09:10 | disposition home or self-care (01) ==
LOC: M.ERS 08:41
DX: J40 Bronchitis, not specified as acute or chronic (principal); J32.9 Chronic sinusitis, unspecified; I10 Essential (primary) hypertension; K21.9 Gastro-esophageal reflux disease without esophagitis; G89.29 Other chronic pain; F17.210 Nicotine dependence, cigarettes, uncomplicated; Z88.5 Allergy status to narcotic agent

== ENCOUNTER 2020-08-09 12:48 | Emergency (ER) | payer OTHER, MEDICAID ==
[~2020-08-09] VITALS: Ht 175.3 cm; Wt 81.7 kg
[2020-08-09 13:17] LABS: URINE BILIRUBIN NEGATIVE (Negative); URINE BLOOD NEGATIVE (Negative); URINE CLARITY CLEAR; URINE COLOR YELLOW; URINE GLUCOSE-RANDOM NEGATIVE (Negative); URINE KETONES NEGATIVE (Negative); URINE LEUKOCYTES-REFLEX NEGATIVE (Negative); URINE NITRITE-REFLEX NEGATIVE (Negative); URINE PROTEIN NEGATIVE (Negative); URINE UROBILINOGEN 0.2 E.U./dl (0.2-1.0)
[2020-08-09 13:40] LABS: ABSOLUTE BASOPHILS 0.1 thou/uL (0.0-0.2); ABSOLUTE EOSINOPHILS 0.4 thou/uL (0.0-0.7); ABSOLUTE LYMPHOCYTES 3.4 thou/uL (0.8-5.3); ABSOLUTE MONOCYTES 0.5 thou/uL (0.0-1.2); ABSOLUTE NEUTROPHILS 5.7 thou/uL (1.6-8.1); EOSINOPHILS 4.4 %; HEMATOCRIT 46.4 % (42.0-52.0); LYMPHOCYTES 33.3 %; MCH 31.9 pg (26.0-34.0); MCHC 34.4 g/dL (28.0-37.0); MCV 92.6 fL (80.0-100.0); MONOCYTES 4.5 %; MPV 7.3 fl. (7.2-11.1); NUCLEATED RBCS 0 /100WBC; PLATELET COUNT* 217 thou/uL (150-400); POLYS 56.8 %; RBC 5.01 mil/uL (4.50-6.00); RDW-CV 13.7 % (10.5-14.5); WBC 10.1 thou/uL (4.0-11.0)
[2020-08-09] MEDS ORDERED: BUTALB-APAP-CA1 EACH PO (13:41)
[2020-08-09] MEDS ORDERED: PHENERGAN 25 MG25 M1 PO (13:43)
[2020-08-09 13:48] LABS: CALCIUM 8.8 mg/dL (8.5-10.1); CREATININE 0.8 mg/dL (0.6-1.3); POTASSIUM 3.3 mmol/L (3.5-5.1)
[2020-08-09 13:52] LABS: ALBUMIN 3.8 g/dL (3.4-5.0); TOTAL BILIRUBIN 0.5 mg/dL (<0.1-1.0); TOTAL PROTEIN 6.7 g/dL (6.4-8.2)
[2020-08-09 14:40] VITALS: BP 158/95
--- NOTE | 2020-08-09 17:46 | EKG ---
[place] [address] ELECTROCARDIOGRAM REPORT Name: KAROLINA EPPS Room: [facility]#: [id number] Admission: 08/09/20 Attend Phys: Discharge: 08/09/20 Date of : [birth year] Date of Service: 08/09/20 1313 Report #: [id number] THIS REPORT FOR: //name// [facility] ED Test Date: 2020-08-09 Test Time: 13:13:15 Pat Name: KAROLINA EPPS Department: Room: Gender: Hospitality Host: [facility] : 1980 Requested By: Adia Paige Order Number: [id number] MD: Dandy Wise Measurements Intervals [place] Rate: 75 P: 39 [place]: 136 QRS: 46 QRSD: 93 T: 45 QT: 391 QTc: 437 Interpretive Statements Sinus rhythm Compared to ECG 07/05/2020 22:48:59 No significant changes Electronically Signed On 08-09-2020 17:46:12 CDT by Dandy Wise [email or web address] <ELECTRONICALLY SIGNED> By: Dandy Wise MD, [facility] 08/09/20 1746 Dandy Wise MD, [facility] /EPI
== END 2020-08-09 14:40 | disposition home or self-care (01) ==
LOC: M.ERS 12:48
PROVIDERS: Nurse Practitioner Family
DX: G89.29 Other chronic pain (principal); R51.9 Headache, unspecified; R11.0 Nausea; I10 Essential (primary) hypertension; K21.9 Gastro-esophageal reflux disease without esophagitis; F17.210 Nicotine dependence, cigarettes, uncomplicated; Z79.899 Other long term (current) drug therapy; Z88.6 Allergy status to analgesic agent

== ENCOUNTER 2020-08-20 13:55 | Emergency (ER) | payer OTHER, MEDICAID ==
[~2020-08-20] VITALS: Ht 177.8 cm; Wt 72.6 kg
[2020-08-21] MEDS ORDERED: NORCO 10-325 T1 EACH PO (16:59)
[2020-08-21] MEDS ORDERED: ZOFRAN ODT4 MG SUBLING (17:21)
[2020-08-21] MEDS ORDERED: BUTALB-APAP-CA1 EACH PO (17:21)
== END 2020-08-20 15:12 | disposition home or self-care (01) ==
LOC: M.ERS 13:55
DX: Z53.21 Procedure and treatment not carried out due to patient leaving prior to being seen by health care provider (principal)

== ENCOUNTER 2020-08-21 16:41 | Emergency (ER) | payer OTHER, MEDICAID ==
[~2020-08-21] VITALS: Ht 175.3 cm; Wt 81.7 kg
[2020-08-21] MEDS ORDERED: NORCO 10-325 T1 EACH PO (16:59)
[2020-08-21] MEDS ORDERED: ZOFRAN ODT4 MG SUBLING (17:21)
[2020-08-21] MEDS ORDERED: BUTALB-APAP-CA1 EACH PO (17:21)
[2020-08-21 17:37] VITALS: BP 145/90
== END 2020-08-21 17:37 | disposition home or self-care (01) ==
LOC: M.ERS 16:41
DX: R51.9 Headache, unspecified (principal); I10 Essential (primary) hypertension; K21.9 Gastro-esophageal reflux disease without esophagitis; G89.29 Other chronic pain; F17.210 Nicotine dependence, cigarettes, uncomplicated; Z88.5 Allergy status to narcotic agent

== ENCOUNTER 2020-08-24 17:38 | Emergency (ER) | payer OTHER, MEDICAID ==
[~2020-08-24] VITALS: Ht 175.3 cm; Wt 81.7 kg
[2020-08-24] MEDS ORDERED: BUTALB-APAP-CA1 EACH PO (20:11)
[2020-08-24 20:31] VITALS: BP 158/113
== END 2020-08-24 20:31 | disposition home or self-care (01) ==
LOC: M.ERS 17:38
DX: M54.6 Pain in thoracic spine (principal); G89.29 Other chronic pain; G43.909 Migraine, unspecified, not intractable, without status migrainosus; I10 Essential (primary) hypertension; K21.9 Gastro-esophageal reflux disease without esophagitis; Z79.899 Other long term (current) drug therapy; Z88.5 Allergy status to narcotic agent; Z91.048 Other nonmedicinal substance allergy status; F17.210 Nicotine dependence, cigarettes, uncomplicated

== ENCOUNTER 2020-09-06 12:02 | Emergency (ER) | payer OTHER, MEDICAID ==
[~2020-09-06] VITALS: Ht 175.3 cm; Wt 83.9 kg
[2020-09-06] MEDS ORDERED: MEDROLDOSEPACK PO (13:12)
[2020-09-06 13:24] VITALS: BP 155/100
== END 2020-09-06 13:25 | disposition home or self-care (01) ==
LOC: M.ERS 12:02
DX: S16.1XXA Strain of muscle, fascia and tendon at neck level, initial encounter (principal); K21.9 Gastro-esophageal reflux disease without esophagitis; I10 Essential (primary) hypertension; F17.210 Nicotine dependence, cigarettes, uncomplicated; Z79.899 Other long term (current) drug therapy; Z88.6 Allergy status to analgesic agent; X58.XXXA Exposure to other specified factors, initial encounter; Y93.89 Activity, other specified; Y92.89 Other specified places as the place of occurrence of the external cause; Y99.8 Other external cause status

== ENCOUNTER 2020-09-13 13:43 | Emergency (ER) | payer OTHER, MEDICAID ==
[~2020-09-13] VITALS: Ht 175.3 cm; Wt 81.7 kg
[2020-09-13] MEDS ORDERED: MECLIZINE HCL25 M1 PO (14:21)
[2020-09-13 14:47] VITALS: BP 136/74
== END 2020-09-13 14:48 | disposition home or self-care (01) ==
LOC: M.ERS 13:43
DX: R51.9 Headache, unspecified (principal); R42 Dizziness and giddiness; I10 Essential (primary) hypertension; K21.9 Gastro-esophageal reflux disease without esophagitis; G89.29 Other chronic pain; F17.210 Nicotine dependence, cigarettes, uncomplicated; Z88.5 Allergy status to narcotic agent

== ENCOUNTER 2020-09-24 14:05 | Emergency (ER) | payer OTHER, MEDICAID ==
[~2020-09-24] VITALS: Ht 175.3 cm; Wt 81.7 kg
[~2020-09-24 14:05] MED LIST changes: +MECLIZINE HCL25 M1 PO
[2020-09-24] MEDS ORDERED: NORCO 10-325 T1 EACH PO (14:34)
[2020-09-24 15:40] VITALS: BP 158/95
== END 2020-09-24 15:40 | disposition home or self-care (01) ==
LOC: M.ERS 14:05
DX: G89.29 Other chronic pain (principal); M54.6 Pain in thoracic spine; G43.909 Migraine, unspecified, not intractable, without status migrainosus; R42 Dizziness and giddiness; I10 Essential (primary) hypertension; K21.9 Gastro-esophageal reflux disease without esophagitis; F17.210 Nicotine dependence, cigarettes, uncomplicated; Z79.899 Other long term (current) drug therapy; Z88.5 Allergy status to narcotic agent; Z91.048 Other nonmedicinal substance allergy status

== ENCOUNTER 2020-09-29 19:58 | Emergency (ER) | payer OTHER, MEDICAID ==
[~2020-09-29] VITALS: Ht 175.3 cm; Wt 81.7 kg
[2020-09-29 20:46] LABS: INFLUENZA A ANTIGEN Negative (Negative); INFLUENZA B ANTIGEN Negative (Negative)
[2020-09-29] MEDS ORDERED: PROAIR HFA8.5 GM INH (21:05)
[2020-09-29 21:35] VITALS: BP 148/82
== END 2020-09-29 20:35 | disposition home or self-care (01) ==
LOC: M.ERS 19:58
PROVIDERS: Emergency Medicine
DX: J06.9 Acute upper respiratory infection, unspecified (principal); Z20.828 Contact with and (suspected) exposure to other viral communicable diseases; G43.909 Migraine, unspecified, not intractable, without status migrainosus; I10 Essential (primary) hypertension; K21.9 Gastro-esophageal reflux disease without esophagitis; G89.29 Other chronic pain; F17.210 Nicotine dependence, cigarettes, uncomplicated; Z88.5 Allergy status to narcotic agent

== ENCOUNTER 2020-10-03 13:01 | Emergency (ER) | payer OTHER, MEDICAID ==
[~2020-10-03] VITALS: Ht 172.7 cm; Wt 81.7 kg
[2020-10-03 13:41] VITALS: BP 141/70
== END 2020-10-03 13:42 | disposition home or self-care (01) ==
LOC: M.ERS 13:01
DX: G89.29 Other chronic pain (principal); M54.5 Low back pain; G43.909 Migraine, unspecified, not intractable, without status migrainosus; K21.9 Gastro-esophageal reflux disease without esophagitis; I10 Essential (primary) hypertension; F17.210 Nicotine dependence, cigarettes, uncomplicated

== ENCOUNTER 2020-10-23 18:11 | Emergency (ER) | payer OTHER, MEDICAID ==
[~2020-10-23] VITALS: Ht 172.7 cm; Wt 81.7 kg
[2020-10-23 18:32] LABS: URINE BILIRUBIN NEGATIVE (Negative); URINE BLOOD NEGATIVE (Negative); URINE CLARITY CLEAR; URINE COLOR YELLOW; URINE GLUCOSE-RANDOM NEGATIVE (Negative); URINE KETONES NEGATIVE (Negative); URINE LEUKOCYTES-REFLEX NEGATIVE (Negative); URINE NITRITE-REFLEX NEGATIVE (Negative); URINE PROTEIN NEGATIVE (Negative); URINE UROBILINOGEN 0.2 E.U./dl (0.2-1.0)
[2020-10-23] MEDS ORDERED: ZOFRAN ODT4 MG PO (18:38)
[2020-10-23 18:40] VITALS: BP 138/82
== END 2020-10-23 18:46 | disposition home or self-care (01) ==
LOC: M.ERS 18:11
PROVIDERS: Nurse Practitioner Family
DX: R11.0 Nausea (principal); I10 Essential (primary) hypertension; K21.9 Gastro-esophageal reflux disease without esophagitis; G43.909 Migraine, unspecified, not intractable, without status migrainosus; F17.210 Nicotine dependence, cigarettes, uncomplicated; Z76.0 Encounter for issue of repeat prescription; Z79.899 Other long term (current) drug therapy; Z88.5 Allergy status to narcotic agent; Z91.09 Other allergy status, other than to drugs and biological substances

== ENCOUNTER 2020-10-27 13:21 | Emergency (ER) | payer OTHER, MEDICAID ==
[~2020-10-27] VITALS: Ht 175.3 cm; Wt 83.9 kg
[~2020-10-27 13:21] MED LIST changes: +ZOFRAN ODT4 MG PO
[2020-10-27 13:50] VITALS: BP 155/106
== END 2020-10-27 13:50 | disposition home or self-care (01) ==
LOC: M.ERS 13:21
DX: R53.1 Weakness (principal); I10 Essential (primary) hypertension; K21.9 Gastro-esophageal reflux disease without esophagitis; G43.909 Migraine, unspecified, not intractable, without status migrainosus; G89.29 Other chronic pain; M54.9 Dorsalgia, unspecified; F17.210 Nicotine dependence, cigarettes, uncomplicated; Z71.1 Person with feared health complaint in whom no diagnosis is made; Z79.899 Other long term (current) drug therapy; Z88.5 Allergy status to narcotic agent; Z91.09 Other allergy status, other than to drugs and biological substances

== ENCOUNTER 2020-12-13 18:50 | Emergency (ER) | payer OTHER, MEDICAID ==
[~2020-12-13] VITALS: Ht 175.3 cm; Wt 81.7 kg
[2020-12-13] MEDS ORDERED: LINZESS72 MCG PO (19:17)
[2020-12-13 19:24] LABS: URINE BILIRUBIN NEGATIVE (Negative); URINE BLOOD NEGATIVE (Negative); URINE CLARITY CLEAR; URINE COLOR YELLOW; URINE GLUCOSE-RANDOM NEGATIVE (Negative); URINE KETONES NEGATIVE (Negative); URINE LEUKOCYTES-REFLEX NEGATIVE (Negative); URINE NITRITE-REFLEX NEGATIVE (Negative); URINE PROTEIN NEGATIVE (Negative); URINE SPECIFIC GRAVITY <= 1.005 (1.005-1.030); URINE UROBILINOGEN 0.2 E.U./dl (0.2-1.0)
[2020-12-13 19:47] LABS: ABSOLUTE BASOPHILS 0.1 thou/uL (0.0-0.2); ABSOLUTE EOSINOPHILS 0.4 thou/uL (0.0-0.7); ABSOLUTE LYMPHOCYTES 2.9 thou/uL (0.8-5.3); ABSOLUTE MONOCYTES 0.4 thou/uL (0.0-1.2); ABSOLUTE NEUTROPHILS 5.1 thou/uL (1.6-8.1); BASOPHILS 1.1 %; EOSINOPHILS 4.5 %; HEMATOCRIT 49.3 % (42.0-52.0); HEMOGLOBIN 16.6 gm/dL (14.0-18.0); LYMPHOCYTES 32.1 %; MCH 31.4 pg (26.0-34.0); MCHC 33.6 g/dL (28.0-37.0); MCV 93.6 fL (80.0-100.0); MONOCYTES 4.6 %; MPV 7.7 fl. (7.2-11.1); NUCLEATED RBCS 0 /100WBC; PLATELET COUNT* 221 thou/uL (150-400); POLYS 57.7 %; RBC 5.27 mil/uL (4.50-6.00); RDW-CV 12.8 % (10.5-14.5); WBC 8.9 thou/uL (4.0-11.0)
[2020-12-13 19:57] LABS: CALCIUM 8.7 mg/dL (8.5-10.1); POTASSIUM 3.9 mmol/L (3.5-5.1)
[2020-12-13 20:01] LABS: TOTAL BILIRUBIN 0.4 mg/dL (<0.1-1.0); TOTAL PROTEIN 6.8 g/dL (6.4-8.2)
[2020-12-13 20:37] VITALS: BP 125/70
== END 2020-12-13 20:38 | disposition home or self-care (01) ==
LOC: M.ERS 18:50
PROVIDERS: Physician Assistant
DX: G89.29 Other chronic pain (principal); R10.11 Right upper quadrant pain; F17.210 Nicotine dependence, cigarettes, uncomplicated; G43.909 Migraine, unspecified, not intractable, without status migrainosus; I10 Essential (primary) hypertension; K21.9 Gastro-esophageal reflux disease without esophagitis; Z88.5 Allergy status to narcotic agent

== ENCOUNTER 2021-01-27 22:07 | Emergency (ER) | payer OTHER, MEDICAID ==
[~2021-01-27] VITALS: Ht 175.3 cm; Wt 81.7 kg
[~2021-01-27 22:07] MED LIST changes: +LINZESS72 MCG PO
[2021-01-27 22:44] LABS: ABSOLUTE BASOPHILS 0.1 thou/uL (0.0-0.2); ABSOLUTE EOSINOPHILS 0.4 thou/uL (0.0-0.7); ABSOLUTE LYMPHOCYTES 2.5 thou/uL (0.8-5.3); ABSOLUTE MONOCYTES 0.5 thou/uL (0.0-1.2); ABSOLUTE NEUTROPHILS 5.6 thou/uL (1.6-8.1); BASOPHILS 1.4 %; HEMATOCRIT 48.1 % (42.0-52.0); HEMOGLOBIN 16.2 gm/dL (14.0-18.0); LYMPHOCYTES 27.8 %; MCH 31.4 pg (26.0-34.0); MCHC 33.7 g/dL (28.0-37.0); MCV 93.2 fL (80.0-100.0); MPV 7.6 fl. (7.2-11.1); NUCLEATED RBCS 0 /100WBC; PLATELET COUNT* 224 thou/uL (150-400); POLYS 61.8 %; RBC 5.16 mil/uL (4.50-6.00); RDW-CV 13.4 % (10.5-14.5)
[2021-01-27 22:52] LABS: CALCIUM 8.8 mg/dL (8.5-10.1); CREATININE 0.9 mg/dL (0.6-1.3); POTASSIUM 3.8 mmol/L (3.5-5.1)
[2021-01-27 22:56] LABS: ALBUMIN 3.8 g/dL (3.4-5.0); TOTAL BILIRUBIN 0.6 mg/dL (<0.1-1.0); TOTAL PROTEIN 6.6 g/dL (6.4-8.2)
[2021-01-27 23:25] VITALS: BP 147/99
--- NOTE | 2021-01-28 14:17 | EKG ---
[place] [address] ELECTROCARDIOGRAM REPORT Name: MICHKAROLINA Room: [facility]#: [id number] Admission: 01/27/21 Attend Phys: Discharge: 01/27/21 Date of : [birth year] Date of Service: 01/27/212221 Report #: [id number] THIS REPORT FOR: //name// [facility] ED Test Date: 2021-01-27 Test Time: 22:22:46 Pat Name: KAROLINA EPPS Department: Room: Gender: Creping Machine Operator Helper: [place] : 1980 Requested By: Suly Bautista Order Number: [id number] Alisha MD: Dandy Wise Measurements Intervals [place] Rate: 86 P: 41 [place]: 129 QRS: 28 QRSD: 91 T: 26 QT: 378 QTc: 452 Interpretive Statements Sinus rhythm Compared to ECG 08/09/2020 13:13:15 No significant changes Electronically Signed On 01-28-2021 14:17:12 CDT by Dandy Wise [email or web address] <ELECTRONICALLY SIGNED> By: Dandy Wise MD, [facility] 01/28/21 141 21 21 Dandy Wise MD, [facility] /EPI
== END 2021-01-27 23:26 | disposition home or self-care (01) ==
LOC: M.ERS 22:07
PROVIDERS: Emergency Medicine
DX: R53.1 Weakness (principal); Z20.822 Contact with and (suspected) exposure to COVID-19; I10 Essential (primary) hypertension; K21.9 Gastro-esophageal reflux disease without esophagitis; G43.909 Migraine, unspecified, not intractable, without status migrainosus; Z88.5 Allergy status to narcotic agent

== ENCOUNTER 2021-02-03 17:40 | Emergency (ER) | payer OTHER, MEDICAID ==
[~2021-02-03] VITALS: Ht 175.3 cm; Wt 81.7 kg
[2021-02-03] MEDS ORDERED: HYDROCODON-ACE1 EAC7 PO ×2 (18:08→19:09)
[2021-02-03 18:16] VITALS: BP 149/99
== END 2021-02-03 18:18 | disposition home or self-care (01) ==
LOC: M.ERS 17:40
DX: R42 Dizziness and giddiness (principal); M54.2 Cervicalgia; I10 Essential (primary) hypertension; K21.9 Gastro-esophageal reflux disease without esophagitis; G43.909 Migraine, unspecified, not intractable, without status migrainosus; F17.210 Nicotine dependence, cigarettes, uncomplicated; Z88.5 Allergy status to narcotic agent; Z79.899 Other long term (current) drug therapy

== ENCOUNTER 2021-02-13 18:08 | Emergency (ER) | payer OTHER, MEDICAID ==
[~2021-02-13] VITALS: Ht 175.3 cm; Wt 81.7 kg
[2021-02-13 20:35] VITALS: BP 138/88
--- NOTE | 2021-02-14 10:50 | EKG ---
[place] [address] ELECTROCARDIOGRAM REPORT Name: MICHKAROLINA Room: [facility]#: [id number] Admission: 02/13/21 Attend Phys: Discharge: 02/13/21 Date of : 78 Date of Service: 02/13/211937 Report #: [id number] THIS REPORT FOR: //name// [facility] ED Test Date: 2021-02-13 Test Time: 19:38:31 Pat Name: KAROLINA EPPS Department: Room: Gender: Radiator Cleaner: [place] : 1980 Requested By: Suly Bautista Order Number: [id number] Alisha MD: Moncho Mcdaniels Measurements Intervals [place] Rate: 78 P: 41 [place]: 129 QRS: 27 QRSD: 89 T: 23 QT: 402 QTc: 458 Interpretive Statements Sinus rhythm Compared to ECG 01/27/2021 22:22:46 No significant changes Electronically Signed On 02-14-2021 10:50:17 CDT by Moncho Mcdaniels [email or web address] <ELECTRONICALLY SIGNED> By: Moncho Mcdaniels MD, [facility] 02/14/21 1050 37 37 Moncho Mcdaniels MD, [facility] /EPI
== END 2021-02-13 20:35 | disposition home or self-care (01) ==
LOC: M.ERS 18:08
DX: R42 Dizziness and giddiness (principal); I10 Essential (primary) hypertension; K21.9 Gastro-esophageal reflux disease without esophagitis; G89.29 Other chronic pain; G43.909 Migraine, unspecified, not intractable, without status migrainosus; F17.210 Nicotine dependence, cigarettes, uncomplicated; Z88.5 Allergy status to narcotic agent; Z79.899 Other long term (current) drug therapy

== ENCOUNTER 2021-03-14 16:04 | Emergency (ER) | payer OTHER, MEDICAID ==
[~2021-03-14] VITALS: Ht 175.3 cm; Wt 81.7 kg
[2021-03-14 16:54] LABS: ABSOLUTE BASOPHILS 0.1 thou/uL (0.0-0.2); ABSOLUTE EOSINOPHILS 0.4 thou/uL (0.0-0.7); ABSOLUTE MONOCYTES 0.4 thou/uL (0.0-1.2); ABSOLUTE NEUTROPHILS 4.5 thou/uL (1.6-8.1); BASOPHILS 0.9 %; EOSINOPHILS 4.3 %; HEMATOCRIT 48.9 % (42.0-52.0); HEMOGLOBIN 16.6 gm/dL (14.0-18.0); LYMPHOCYTES 36.1 %; MCH 31.4 pg (26.0-34.0); MCV 92.3 fL (80.0-100.0); MPV 7.4 fl. (7.2-11.1); NUCLEATED RBCS 0 /100WBC; PLATELET COUNT* 247 thou/uL (150-400); POLYS 53.7 %; RDW-CV 13.4 % (10.5-14.5); WBC 8.3 thou/uL (4.0-11.0)
[2021-03-14 17:03] LABS: CALCIUM 8.6 mg/dL (8.5-10.1); POTASSIUM 3.6 mmol/L (3.5-5.1)
[2021-03-14 17:07] LABS: TOTAL BILIRUBIN 0.4 mg/dL (<0.1-1.0); TOTAL PROTEIN 6.9 g/dL (6.4-8.2)
[2021-03-14 17:28] VITALS: BP 160/90
--- NOTE | 2021-03-17 13:46 | EKG ---
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
== END 2021-03-14 17:28 | disposition home or self-care (01) ==
LOC: M.ERS 16:04
PROVIDERS: Physician Assistant
DX: R53.83 Other fatigue (principal); G43.909 Migraine, unspecified, not intractable, without status migrainosus; I10 Essential (primary) hypertension; K21.9 Gastro-esophageal reflux disease without esophagitis; G89.29 Other chronic pain; Z88.5 Allergy status to narcotic agent

== ENCOUNTER 2021-05-13 20:37 | Emergency (ER) | payer OTHER, MEDICAID ==
[~2021-05-13] VITALS: Ht 175.3 cm; Wt 86.2 kg
[2021-05-13 23:22] VITALS: BP 143/101
== END 2021-05-13 23:22 | disposition home or self-care (01) ==
LOC: M.ERS 20:37
DX: B34.9 Viral infection, unspecified (principal); Z20.822 Contact with and (suspected) exposure to COVID-19; I10 Essential (primary) hypertension; K21.9 Gastro-esophageal reflux disease without esophagitis; G89.29 Other chronic pain; G43.909 Migraine, unspecified, not intractable, without status migrainosus; F17.210 Nicotine dependence, cigarettes, uncomplicated; Z79.899 Other long term (current) drug therapy; Z88.5 Allergy status to narcotic agent; Z88.8 Allergy status to other drugs, medicaments and biological substances

== ENCOUNTER 2021-05-30 15:40 | Emergency (ER) | payer OTHER, MEDICAID ==
[~2021-05-30] VITALS: Ht 175.3 cm; Wt 86.2 kg
[2021-05-30 16:02] VITALS: BP 142/102
[2021-05-30] MEDS ORDERED: AVAPRO 150 MG150 M1 PO (16:05)
[2021-05-30] MEDS ORDERED: TRANSDERM-SCOP1 EACH TRANSDERM (16:22)
== END 2021-05-30 16:30 | disposition home or self-care (01) ==
LOC: M.ERS 15:40
DX: R42 Dizziness and giddiness (principal); G43.909 Migraine, unspecified, not intractable, without status migrainosus; G89.29 Other chronic pain; I10 Essential (primary) hypertension; K21.9 Gastro-esophageal reflux disease without esophagitis; F17.210 Nicotine dependence, cigarettes, uncomplicated; Z88.5 Allergy status to narcotic agent; Z88.8 Allergy status to other drugs, medicaments and biological substances

== ENCOUNTER 2021-09-14 18:30 | Emergency (ER) | payer OTHER, MEDICAID ==
[~2021-09-14] VITALS: Ht 175.3 cm; Wt 89.8 kg
[~2021-09-14 18:30] MED LIST changes: +AVAPRO 150 MG150 M1 PO; +TRANSDERM-SCOP1 EACH TRANSDERM
[2021-09-14] MEDS ORDERED: AMOXICILLIN 50500 MG PO (20:01)
[2021-09-14 20:07] VITALS: BP 145/70
== END 2021-09-14 20:08 | disposition home or self-care (01) ==
LOC: M.ERS 18:30
DX: S00.412A Abrasion of left ear, initial encounter (principal); H66.92 Otitis media, unspecified, left ear; I10 Essential (primary) hypertension; K21.9 Gastro-esophageal reflux disease without esophagitis; G43.909 Migraine, unspecified, not intractable, without status migrainosus; F17.210 Nicotine dependence, cigarettes, uncomplicated; Z79.899 Other long term (current) drug therapy; Z88.6 Allergy status to analgesic agent; Z88.5 Allergy status to narcotic agent; X58.XXXA Exposure to other specified factors, initial encounter; Y93.89 Activity, other specified; Y92.89 Other specified places as the place of occurrence of the external cause; Y99.8 Other external cause status

== ENCOUNTER 2021-10-08 15:11 | Emergency (ER) | payer OTHER, MEDICAID ==
[~2021-10-08] VITALS: Ht 177.8 cm; Wt 90.7 kg
[2021-10-08 16:16] LABS: INFLUENZA A ANTIGEN Negative (Negative); INFLUENZA B ANTIGEN Negative (Negative)
[2021-10-08 16:44] VITALS: BP 158/93
== END 2021-10-08 16:45 | disposition home or self-care (01) ==
LOC: M.ERS 15:11
PROVIDERS: Physician Assistant
DX: Z20.822 Contact with and (suspected) exposure to COVID-19 (principal); K21.9 Gastro-esophageal reflux disease without esophagitis; G43.909 Migraine, unspecified, not intractable, without status migrainosus; I10 Essential (primary) hypertension; F17.210 Nicotine dependence, cigarettes, uncomplicated; Z79.899 Other long term (current) drug therapy; Z88.6 Allergy status to analgesic agent; Z88.8 Allergy status to other drugs, medicaments and biological substances

== ENCOUNTER 2021-10-10 18:24 | Emergency (ER) | payer OTHER, MEDICAID ==
[~2021-10-10] VITALS: Ht 175.3 cm; Wt 90.7 kg
[2021-10-10 21:36] LABS: INFLUENZA A ANTIGEN Negative (Negative)
[2021-10-10] MEDS ORDERED: FLEXERIL PO (21:43)
[2021-10-10 21:50] VITALS: BP 155/97
== END 2021-10-10 21:50 | disposition home or self-care (01) ==
LOC: M.ERS 18:24
PROVIDERS: Physician Assistant
DX: J10.1 Influenza due to other identified influenza virus with other respiratory manifestations (principal); R42 Dizziness and giddiness; I10 Essential (primary) hypertension; K21.9 Gastro-esophageal reflux disease without esophagitis; G43.909 Migraine, unspecified, not intractable, without status migrainosus; F17.210 Nicotine dependence, cigarettes, uncomplicated; Z79.899 Other long term (current) drug therapy; Z88.8 Allergy status to other drugs, medicaments and biological substances; Z88.5 Allergy status to narcotic agent; Z91.048 Other nonmedicinal substance allergy status

== ENCOUNTER 2021-10-23 15:00 | Emergency (ER) | payer OTHER, MEDICAID ==
[~2021-10-23] VITALS: Ht 177.8 cm; Wt 88.5 kg
[2021-10-23] MEDS ORDERED: IBUPROFEN 800800 M1 PO (15:16)
[2021-10-23] MEDS ORDERED: ONDANSETRON ODT4 MG PO (15:17)
[2021-10-23] MEDS ORDERED: MECLIZINE HCL25 M1 PO (17:29)
[2021-10-23 17:48] VITALS: BP 128/89
== END 2021-10-23 17:48 | disposition home or self-care (01) ==
LOC: M.ERS 15:00
DX: R42 Dizziness and giddiness (principal); M54.50 Low back pain, unspecified; R53.1 Weakness; R11.0 Nausea; M54.2 Cervicalgia; I10 Essential (primary) hypertension; K21.9 Gastro-esophageal reflux disease without esophagitis; G43.909 Migraine, unspecified, not intractable, without status migrainosus; F17.210 Nicotine dependence, cigarettes, uncomplicated; Z79.899 Other long term (current) drug therapy; Z88.8 Allergy status to other drugs, medicaments and biological substances; Z88.5 Allergy status to narcotic agent; Z91.048 Other nonmedicinal substance allergy status